=== PATIENT | male | born 1965 | race Caucasian/White ===

== ENCOUNTER 2017-02-12 19:00 | Inpatient (IN) | payer OTHER ==
[2017-02-12] MEDS ORDERED: HYDROmorphone 1 MG/ML 1 ML SYRINGE IVP STA (19:45)
[2017-02-12] MEDS ORDERED: SODIUM CHLORIDE 0.9% 1,000 ML IV STA (19:45)
[2017-02-12] MEDS ORDERED: ONDANSETRON 4 MG/2 ML VIAL IVP STA (19:45)
[2017-02-12] MEDS ORDERED: PANTOPRAZOLE 40 MG/10 ML VIAL IVP STA (19:45)
--- NOTE | 2017-02-12 19:49 | ED ---
Psych HPI - General Chief Complaint: Psychiatric Symptoms Stated Complaint: feet swelling/abdominal pain/depression Time Seen by Provider: 02/12/17 19:30 Source: patient, family, RN notes reviewed Mode of arrival: wheelchair - History of Present Illness Initial Comments: This is a 52-year-old male with a history of alcoholism and alcoholic liver disease who is here because of feeling depressed and suicidal but also he's had a distended abdomen abdominal pain to drinking up to a case of beer per day couple days ago he started having blood in his emesis. He also black stools it was tarry looking. This is since resolved. He has any history of alcoholic she ably the past. He is seeking help for stopping. He does admit to smoking cigarettes also. He denies any fevers chills or sweats he does have some lightheadedness. MD Complaint: suicidal ideation, feels depressed, other - Related Data Home Medications Medication Instructions Recorded Confirmed oxyCODONE HCL/ACETAMINOPHEN 1 tab PO QID PRN 04/20/16 02/12/17 [Percocet 10-325 mg] Allergies Allergy/AdvReac Type Severity Reaction Status Date / Time No Known Allergies Allergy Verified 02/12/17 19:59 Review of Systems ROS Statement: Those systems with pertinent positive or pertinent negative responses have been documented in the HPI. ROS Other: All systems not noted in ROS Statement are negative. Past Medical History Past Medical History: GERD/Reflux, GI Bleed, Seizure Disorder Additional Past Medical History / Comment(s): Chronic alcoholism - SZ related to withdrawals, chronic hip and lower back pain from an accident. History of Any Multi-Drug Resistant Organisms: None Reported Past Surgical History: Orthopedic Surgery Past Anesthesia/Blood Transfusion Reactions: No Reported Reaction Past Psychological History: Anxiety, Bipolar, Depression Smoking Status: Current every day smoker Past Alcohol Use History: Daily, Heavy Past Drug Use History: None Reported - Past Family History Father Additional Family Medical History / Comment(s): cirosis of the liver General Exam - General Exam Comments Initial Comments: This is a well-developed well-nourished awake alert oriented 3 male Limitations: no limitations General appearance: alert, in no apparent distress Head exam: Present: atraumatic, normocephalic, normal inspection Eye exam: Present: normal appearance, PERRL, EOMI. Absent: scleral icterus, conjunctival injection, periorbital swelling ENT exam: Present: normal exam, mucous membranes moist Neck exam: Present: normal inspection. Absent: tenderness, meningismus, lymphadenopathy Respiratory exam: Present: decreased breath sounds. Absent: respiratory distress, wheezes, rales, rhonchi, stridor Cardiovascular Exam: Present: normal rhythm, tachycardia, normal heart sounds. Absent: systolic murmur, diastolic murmur, rubs, gallop, clicks GI/Abdominal exam: Present: soft, distended, tenderness, normal bowel sounds, organomegaly. Absent: guarding, rebound, rigid Rectal exam: Present: normal inspection, normal rectal tone, other (No gross blood. Hemoccult pending) Extremities exam: Present: normal inspection, full ROM, normal capillary refill , pedal edema. Absent: tenderness, joint swelling, calf tenderness Back exam: Present: normal inspection Neurological exam: Present: alert, oriented X3, CN II-XII intact Psychiatric exam: Present: depressed, flat affect, suicidal ideation Skin exam: Present: warm, dry, intact, normal color. Absent: rash Course Vital Signs 02/12/17 02/12/17 19:06 20:32 Temperature 99.0 F Pulse Rate 103 H 107 H Respiratory 18 18 Rate Blood Pressure 177/89 116/72 O2 Sat by Pulse 100 98 Oximetry Medical Decision Making - Medical Decision Making I did discuss the findings with the patient he has not had any further emesis patient will be admitted however for medical evaluation. After he is medically cleared psychiatric evaluation the patient is also at risk for withdrawal. - Lab Data Result diagrams: 02/12/17 20:10 02/12/17 20:10 Lab Results 02/12/17 02/12/17 02/12/17 Range/Units 20:10 20:10 20:10 WBC 9.1 (3.8-10.6) k/uL RBC 2.29 L (4.30-5.90) m/uL Hgb 7.6 L (13.0-17.5) gm/dL Hct 24.3 L (39.0-53.0) % MCV 106.1 H (80.0-100.0) fL MCH 33.1 (25.0-35.0) pg MCHC 31.2 (31.0-37.0) g/dL RDW 14.6 (11.5-15.5) % Plt Count 623 H (150-450) k/uL PT (9.0-12.0) sec INR (<1.1) APTT (22.0-30.0) sec Sodium 132 L (137-145) mmol/L Potassium 3.9 (3.5-5.1) mmol/L Chloride 93 L (98-107) mmol/L Carbon Dioxide 24 (22-30) mmol/L Anion Gap 15 mmol/L BUN 3 L (9-20) mg/dL Creatinine 0.49 L (0.66-1.25) mg/dL Est GFR (MDRD) Af Amer >60 (>60 ml/min/1.73 sqM) Est GFR (MDRD) Non-Af >60 (>60 ml/min/1.73 sqM) Glucose 107 H (74-99) mg/dL Calcium 9.0 (8.4-10.2) mg/dL Total Bilirubin 0.5 (0.2-1.3) mg/dL AST 25 (17-59) U/L ALT 28 (21-72) U/L Alkaline Phosphatase 120 (38-126) U/L Total Creatine Kinase 68 (55-170) U/L CK-MB (CK-2) 1.7 (0.0-2.4) ng/mL CK-MB (CK-2) Rel Index 2.5 Troponin I <0.012 (0.000-0.034) ng/mL Total Protein 7.4 (6.3-8.2) g/dL Albumin 3.8 (3.5-5.0) g/dL Amylase 54 (30-110) U/L Lipase 63 (23-300) U/L Serum Alcohol 51 mg/dL 02/12/17 Range/Units 20:10 WBC (3.8-10.6) k/uL RBC (4.30-5.90) m/uL Hgb (13.0-17.5) gm/dL Hct (39.0-53.0) % MCV (80.0-100.0) fL MCH (25.0-35.0) pg MCHC (31.0-37.0) g/dL RDW (11.5-15.5) % Plt Count (150-450) k/uL PT 10.0 (9.0-12.0) sec INR 1.0 (<1.1) APTT 23.7 (22.0-30.0) sec Sodium (137-145) mmol/L Potassium (3.5-5.1) mmol/L Chloride (98-107) mmol/L Carbon Dioxide (22-30) mmol/L Anion Gap mmol/L BUN (9-20) mg/dL Creatinine (0.66-1.25) mg/dL Est GFR (MDRD) Af Amer (>60 ml/min/1.73 sqM) Est GFR (MDRD) Non-Af (>60 ml/min/1.73 sqM) Glucose (74-99) mg/dL Calcium (8.4-10.2) mg/dL Total Bilirubin (0.2-1.3) mg/dL AST (17-59) U/L ALT (21-72) U/L Alkaline Phosphatase (38-126) U/L Total Creatine Kinase (55-170) U/L CK-MB (CK-2) (0.0-2.4) ng/mL CK-MB (CK-2) Rel Index Troponin I (0.000-0.034) ng/mL Total Protein (6.3-8.2) g/dL Albumin (3.5-5.0) g/dL Amylase (30-110) U/L Lipase (23-300) U/L Serum Alcohol mg/dL - EKG Data -: EKG Interpreted by Ma EKG shows normal: sinus rhythm Rate: tachycardia (Sinus tachycardia rate of 109. Interval 120 QRS duration 96 daily since QTC of 354/476 poor R-wave progression no acute ST-T wave changes.) - Radiology Data Radiology results: report reviewed (I did review the x-ray report no definite acute findings), image reviewed Disposition Clinical Impression: Upper GI bleed, Anemia, Depression, Suicidal ideation, Alcoholism, Nicotine addiction Disposition: ADMITTED IP TO THIS [facility] Condition: Serious Referrals: Lamonte Mckoy Jr, [Primary Care Provider] - 1-2 days
[2017-02-12 20:45] LABS: ALT 28 U/L (21-72); AST 25 U/L (17-59); Alcohol 51 mg/dL; Alkaline Phosphatase 120 U/L (38-126); Amylase 54 U/L (30-110); Anion Gap 15 mmol/L; Basophils % (A) 0 %; Blood Urea Nitrogen 3 mg/dL (9-20); CH 33.7; CHCM 31.8; Carbon Dioxide 24 mmol/L (22-30); Chloride 93 mmol/L (98-107); Eosinophils # (A) 0.1 k/uL (0-0.7); Eosinophils % (A) 1 %; Glucose 107 mg/dL (74-99); HCT 24.3 % (39.0-53.0); HDW 4.89; HGB 7.6 gm/dL (13.0-17.5); Hypochromasia Marked; Luc # (Auto) 0.17; Luc % (Auto) 2; Lymphocytes # (A) 1.3 k/uL (1.0-4.8); Lymphocytes % (A) 14 %; MCH 33.1 pg (25.0-35.0); MCHC 31.2 g/dL (31.0-37.0); MCV 106.1 fL (80.0-100.0); Macrocytosis Moderate; Mean Platelet Volume 7.5; Monocytes # (A) 0.5 k/uL (0-1.0); Monocytes % (A) 6 %; Neutrophils % (A) 77 %; Non-African American GFR(MDRD) >60 (>60 ml/min/1.73 sqM); Partial Thromboplastin Time 23.7 sec (22.0-30.0); Poikilocytosis Marked; Potassium 3.9 mmol/L (3.5-5.1); RBC 2.29 m/uL (4.30-5.90); RDW 14.6 % (11.5-15.5); Sodium 132 mmol/L (137-145); Total Bilirubin 0.5 mg/dL (0.2-1.3); Total Protein 7.4 g/dL (6.3-8.2); WBC 9.1 k/uL (3.8-10.6); WBC (Perox) 9.41
[2017-02-12] MEDS ORDERED: NICOTINE 21MG/24HR PATCH TRANSDERM STA (20:49)
--- NOTE | 2017-02-12 20:53 | XR ---
EXAMINATION TYPE: XR abdomen 2V DATE OF EXAM: 02/12/2017 8:43 PM COMPARISON: 05/02/2016 HISTORY: Nausea TECHNIQUE: 3 views FINDINGS: There is no sign of intestinal obstruction or pneumoperitoneum. Fecal pattern is normal. There are mu ltiple tiny calcifications over the right upper quadrant that could be gallstones. There is a right h ip nailing. There is plate with screws fixating the left acetabulum. There is a levoscoliosis of the lumbar spine. There is no evidence of a mass. Lung bases are clear. IMPRESSION: Nonacute abdomen. There is clearing of the dilated small bowel loops compared to old exam . There is probably gallstones.
[2017-02-12 20:58] LABS: Creatine Kinase 68 U/L (55-170)
[2017-02-12 21:11] LABS: Creatine Kinase MB 1.7 ng/mL (0.0-2.4); Troponin I <0.012 ng/mL (0.000-0.034)
[2017-02-12] MEDS ORDERED: NALOXONE 0.4 MG/ML 1 ML VIAL IV PRN (21:14)
[2017-02-12] MEDS ORDERED: ONDANSETRON 4 MG/2 ML VIAL IVP PRN (21:14)
[2017-02-12] MEDS ORDERED: THIAMINE 100 MG/ML 2 ML VIAL IM STA (21:18)
[2017-02-12] MEDS ORDERED: LORazepam 2 MG/ML SYRINGE IV PRN ×3 (21:18)
[2017-02-12 21:53] LABS: Manual Review Performed
[2017-02-12 21:54] LABS: Polychromasia Present
[2017-02-12] MEDS: THIAMINE 100 MG TAB PO SCH (22:05)
[2017-02-12 22:28] VITALS: BMI 25.0
[2017-02-12] MEDS: SODIUM CHLORIDE 0.9% 1,000 ML IV SCH ×2 (22:30→23:58)
[2017-02-12] MEDS: HYDROmorphone 1 MG/ML 1 ML SYRINGE IV PRN (23:58)
[2017-02-13 00:20] LABS: Appearance,Urine Clear (Clear); Bilirubin,Urine Negative (Negative); Glucose,Urine (UA) Negative (Negative); Ketones,Urine Negative (Negative); Leukocyte Esterase,Urine Negative (Negative); Nitrite,Urine Negative (Negative); Protein,Urine Trace (Negative); Specific Gravity,Urine 1.006 (1.001-1.035); UA Billing (MACRO vs. MICRO) CHEM; Urobilinogen,Urine <2.0 mg/dL (<2.0)
[2017-02-13] MEDS: HYDROmorphone 1 MG/ML 1 ML SYRINGE IV PRN ×2 (07:06→10:00)
[2017-02-13 07:28] LABS: Glucose,Whole Blood 115 mg/dL (75-99)
[2017-02-13 08:41] LABS: Basophils % (A) 0 %; CH 33.5; CHCM 30.8; Eosinophils # (A) 0.1 k/uL (0-0.7); Eosinophils % (A) 1 %; HCT 22.4 % (39.0-53.0); HDW 4.76; Hypochromasia Marked; Luc # (Auto) 0.18; Luc % (Auto) 2; Lymphocytes # (A) 1.3 k/uL (1.0-4.8); Lymphocytes % (A) 15 %; MCH 33.5 pg (25.0-35.0); MCHC 30.7 g/dL (31.0-37.0); MCV 108.9 fL (80.0-100.0); Macrocytosis Marked; Mean Platelet Volume 7.4; Monocytes # (A) 0.6 k/uL (0-1.0); Monocytes % (A) 6 %; Neutrophils # (A) 6.7 k/uL (1.3-7.7); Neutrophils % (A) 76 %; Poikilocytosis Marked; RBC 2.06 m/uL (4.30-5.90); WBC 8.8 k/uL (3.8-10.6); WBC (Perox) 9.26
[2017-02-13 09:02] LABS: HGB 6.9 gm/dL (13.0-17.5)
[2017-02-13] MEDS: PANTOPRAZOLE 40 MG/10 ML VIAL IV SCH ×2 (09:36→20:13)
[2017-02-13] MEDS: NICOTINE 21MG/24HR PATCH TRANSDERM SCH (10:00)
[2017-02-13] MEDS: SODIUM CHLORIDE 0.9% 1,000 ML IV SCH ×2 (10:01→10:09)
[2017-02-13] MEDS: THIAMINE 100 MG TAB PO SCH ×2 (10:08→13:35)
[2017-02-13 10:27] LABS: Manual Review Performed
--- NOTE | 2017-02-13 13:50 | P.CN ---
Psychiatric Consult - . Consult date: 02/13/17 Consult:: 02/13/17 13:40 DATE OF SERVICE: 02/13/2017 IDENTIFYING DATA: This patient is a 52-year-old male admitted to the medical floor for alcohol intoxication, suicidal ideation. . HISTORY OF PRESENT ILLNESS: The patient present presented to the emergency room with his for depression and suicidal ideation and alcohol use disorder. He was admitted to the medical floor due to several medical illnesses requiring treatment. It was noted that he was severely anemic with a hemoglobin of 6.9. When patient was being interviewed he was just receiving blood transfusion. At that time his also arrived. Patient stated it was all right for his to remain for the evaluation. Patient states he is not suicidal she would not do that to his and children. States he is never made a suicide attempt, states he has been here on 3 W but no visit was found. Patient states that he drinks anywhere from 12- 24 beers every day. He has not worked for 12 years. He is not on Social Security disability has been denied. states that they were denied because she was working and receiving a good salary. Now she has been laid off and working minimum wage. Patient denies depression and denies suicidal ideation, however says that he is frequently talking about regaining the garage so that when someone opens up the door he'll be there hanging. Patient becomes upset stating that that is just a joke. thinks that he is depressed but she is not sure he is irritable during the interview and marginally cooperative. PAST PSYCHIATRIC HISTORY: []Reports he had an admission here but I could not find the visit. States that he was having hallucinations at the time denies that he was using anything other than alcohol PAST MEDICAL HISTORY: History of alcoholism and alcoholic liver disease, abdominal pain, blood in his emesis. He also black stools it was tarry looking. This is since resolved. Laboratory Tests 02/13/17 08:12 WBC 8.8 RBC 2.06 L Hgb 6.9 L* Hct 22.4 L MCV 108.9 H MCH 33.5 MCHC 30.7 L RDW 15.0 Plt Count 538 H CHEMICAL DEPENDENCY HISTORY: Patient reports that he used to use cannabis when he was younger but hasn't used for quite some time currently is only drug use is alcohol. He reports he's had 2 rehabs could not recall the dates both at [place] reports that he remained abstinent for maybe 2-3 weeks after each one and then something would trigger him to go back to drinking. States he has 3 DUIs the last one about 6 or 7 years ago FAMILY PSYCHIATRIC HISTORY: Unknown FAMILY CHEMICAL DEPENDENCY HISTORY: Unknown LEGAL HISTORY: 3 DUIs no pending issues SOCIAL HISTORY: Patient lives with his they have grown children. They've been for 31 years is frustrated with his behavior and lack of willingness to make any changes they are now financially strapped due to the fact that she lost her well paying job. Patient has attempted to receive Social Security disability but has been denied MENTAL STATUS EXAM: Patient alert and oriented 3, good eye contact, fair groomed in hospital attire/street clothing. Speech normal volume, rate and production. Coherent, logical and goal directed thought process. No WILLY, no FOI. No TB/TW/ TI Denied auditory and visual hallucinations. Denied paranoid ideation, delusions or IOR. Memory grossly intact Cognition average Mood dysphoric, irritable, affect and constricted, congruent with mood. Denies suicidal ideation, denies homicidal ideation. Insight limited; Judgment grossly intact for treatment purposes IMPRESSIONS: Suicidal ideation ETOH Use Disorder, severe (ETOH Dependence) ETOH Induced mood disorder vs Depression, unspecified Anemia PLAN: Patient agreed to 3W admission once medically cleared. Discussed with who is in support. 02/13/17 13:51 02/13/17 13:52
--- NOTE | 2017-02-13 14:10 | P.HPIM ---
History of Present Illness H&P Date: 02/13/17 Chief Complaint: GI bleed anemia, depression, suicidal ideation, alcoholism, nicotine addict This 48-year-old male known to the practice , with history of alcoholic liver disease, alcoholism, patient presented with feelings of depression and suicidal thoughts. Patient drinks up to case of beer per day started having bloody emesis 2-3 days ago. Also complained of black tarry stools. Heavy cigarette smoker. Denies fevers chills or sweats is complaining of lightheadedness Review of Systems Constitutional: Reports sweats, Reports weakness Ears, nose, mouth and throat: Reports as per HPI Cardiovascular: Reports as per HPI Respiratory: Reports cough Gastrointestinal: Reports bloating, Reports coffee ground emesis, Reports hematochezia Genitourinary: Reports as per HPI Musculoskeletal: Reports as per HPI Integumentary: Reports as per HPI Neurological: Reports as per HPI Psychiatric: Reports depression, Reports suicidal ideation Endocrine: Reports as per HPI Past Medical History Past Medical History: GERD/Reflux, GI Bleed, Seizure Disorder Additional Past Medical History / Comment(s): chronic hip and upper back pain. History of Any Multi-Drug Resistant Organisms: None Reported Past Surgical History: Back Surgery, Orthopedic Surgery Additional Past Surgical History / Comment(s): left hip Past Anesthesia/Blood Transfusion Reactions: No Reported Reaction Past Psychological History: Anxiety, Bipolar, Depression Smoking Status: Current every day smoker Past Alcohol Use History: Daily, Heavy Additional Past Alcohol Use History / Comment(s): 12-24 beers a day Past Drug Use History: None Reported - Past Family History Father Additional Family Medical History / Comment(s): cirrosis of the liver Medications and Allergies Home Medications Medication Instructions Recorded Confirmed Type oxyCODONE HCL/ACETAMINOPHEN 1 tab PO QID PRN 04/20/16 02/12/17 History [Percocet 10-325 mg] Allergies Allergy/AdvReac Type Severity Reaction Status Date / Time No Known Allergies Allergy Verified 02/12/17 19:59 Physical Exam Osteopathic Statement: *. No significant issues noted on an osteopathic structural exam other than those noted in the History and Physical/Consult. Vitals: Vital Signs Temp Pulse Pulse Resp BP BP Pulse Ox 02/13/17 13:37 98.9 F 99 16 140/83 97 02/13/17 13:07 99.3 F 98 16 144/94 97 02/13/17 12:57 99.2 F 101 H 16 136/81 98 02/13/17 07:00 99.4 F 112 H 14 137/73 96 02/13/17 04:01 16 02/13/17 02:36 99.2 F 99 16 112/74 97 02/12/17 22:04 98.3 F 100 18 160/90 99 02/12/17 22:00 18 02/12/17 21:23 99.6 F 108 H 18 139/77 100 02/12/17 20:32 107 H 18 116/72 98 02/12/17 19:06 99.0 F 103 H 18 177/89 100 Intake and Output 02/12/17 02/13/17 02/13/17 22:59 06:59 14:59 Intake Total 800 0 Output Total 600 Balance 800 -600 Intake: IV 800 Sodium Chloride 0.9% 1, 800 000 ml @ 100 mls/hr IV . Q10H SARBJIT Rx#:[id number] Blood Product 0 Rc As-3 Unit 0 [id number] Output: Urine 600 Other: Voiding Method Urinal # Voids 2 Weight 74.843 kg General: [Patient awake, alert and oriented times 3. Patient in no acute distress.] HEENT: [PERRL. EOMI. No pharyngeal erythema or exudate.] No scleral icterus Neck: [No adenopathy.] Cardiac: [Heart regular in rate and rhythm. No S3. No S4. No clicks, rubs. No murmur.] Lungs: [Clear to auscultation bilaterally.] Abdomen: [No mass. No organomegaly. Bowel sounds presnt and normoactive in all 4 quadrants.] Extremes: [No edema no cyanosis no claudication normal pulses] : [] Musculoskeletal: [No joint erythema, edema or tenderness.] Skin: [No rash.] Neurologic: [No lateralizing deficits. CN II - XII grossly intact.] Lymphatic: [No adenopathy.] Results CBC & Chem 7: 02/13/17 08:12 02/12/17 20:10 Labs: Abnormal Lab Results - Last 24 Hours (Table) 02/12/17 02/12/17 02/12/17 Range/Units 20:10 20:10 20:10 RBC 2.29 L (4.30-5.90) m/uL Hgb 7.6 L (13.0-17.5) gm/dL Hct 24.3 L (39.0-53.0) % MCV 106.1 H (80.0-100.0) fL MCHC (31.0-37.0) g/dL Plt Count 623 H (150-450) k/uL Sodium 132 L (137-145) mmol/L Chloride 93 L (98-107) mmol/L BUN 3 L (9-20) mg/dL Creatinine 0.49 L (0.66-1.25) mg/dL Glucose 107 H (74-99) mg/dL POC Glucose (mg/dL) (75-99) mg/dL Urine Protein (Negative) Urine Opiates Screen (NotDetected) Ur Oxycodone Screen (NotDetected) Crossmatch See Detail 02/13/17 02/13/17 02/13/17 Range/Units 00:06 00:06 07:26 RBC (4.30-5.90) m/uL Hgb (13.0-17.5) gm/dL Hct (39.0-53.0) % MCV (80.0-100.0) fL MCHC (31.0-37.0) g/dL Plt Count (150-450) k/uL Sodium (137-145) mmol/L Chloride (98-107) mmol/L BUN (9-20) mg/dL Creatinine (0.66-1.25) mg/dL Glucose (74-99) mg/dL POC Glucose (mg/dL) 115 H (75-99) mg/dL Urine Protein Trace H (Negative) Urine Opiates Screen Detected H (NotDetected) Ur Oxycodone Screen Detected H (NotDetected) Crossmatch 02/13/17 Range/Units 08:12 RBC 2.06 L (4.30-5.90) m/uL Hgb 6.9 L* (13.0-17.5) gm/dL Hct 22.4 L (39.0-53.0) % MCV 108.9 H (80.0-100.0) fL MCHC 30.7 L (31.0-37.0) g/dL Plt Count 538 H (150-450) k/uL Sodium (137-145) mmol/L Chloride (98-107) mmol/L BUN (9-20) mg/dL Creatinine (0.66-1.25) mg/dL Glucose (74-99) mg/dL POC Glucose (mg/dL) (75-99) mg/dL Urine Protein (Negative) Urine Opiates Screen (NotDetected) Ur Oxycodone Screen (NotDetected) Crossmatch Thrombosis Risk Factor Assmnt - DVT/VTE Prophylaxis DVT/VTE Prophylaxis: Low risk, early ambulation encouraged - Choose All That Apply Each Factor Represents 1 point: Age 41-60 years, Obesity (BMI >25), Swollen legs (current) Other Risk Factors: No Other congenital or acquired thrombophilia - If yes, enter type in comment: Yes Each Risk Factor Represents 5 Points: Major surgery lasting over 3 hours Thrombosis Risk Factor Assessment Total Risk Factor Score: 8 Thrombosis Risk Factor Assessment Level: High Risk Assessment and Plan Plan: Alcoholism by history GI bleed Anemia secondary to GI bleed Nicotine addiction Depression, suicidal ideation Plan: Transfuse 2 units packed red cells GI consult Psychiatry consult Further orders to follow Time with Patient: Greater than 30
[2017-02-13 16:19] LABS: Anisocytosis Slight; Basophils % (A) 0 %; CH 32.7; CHCM 31.2; Eosinophils # (A) 0.1 k/uL (0-0.7); Eosinophils % (A) 1 %; HCT 25.5 % (39.0-53.0); HDW 4.96; HGB 7.6 gm/dL (13.0-17.5); Hypochromasia Marked; Luc # (Auto) 0.18; Luc % (Auto) 2; Lymphocytes # (A) 1.3 k/uL (1.0-4.8); Lymphocytes % (A) 15 %; MCH 31.6 pg (25.0-35.0); MCHC 29.8 g/dL (31.0-37.0); MCV 105.8 fL (80.0-100.0); Macrocytosis Marked; Mean Platelet Volume 7.4; Monocytes # (A) 0.6 k/uL (0-1.0); Monocytes % (A) 7 %; Neutrophils # (A) 6.2 k/uL (1.3-7.7); Neutrophils % (A) 74 %; Poikilocytosis Marked; RBC 2.41 m/uL (4.30-5.90); RDW 18.8 % (11.5-15.5); WBC 8.3 k/uL (3.8-10.6); WBC (Perox) 9.22
[2017-02-13 21:03] LABS: Anisocytosis Slight; Basophils % (A) 0 %; CH 32.6; CHCM 33.4; Eosinophils # (A) 0.1 k/uL (0-0.7); Eosinophils % (A) 1 %; HCT 27.8 % (39.0-53.0); HDW 5.35; Hypochromasia Marked; Luc # (Auto) 0.22; Luc % (Auto) 3; Lymphocytes # (A) 1.5 k/uL (1.0-4.8); Lymphocytes % (A) 17 %; MCH 32.7 pg (25.0-35.0); Macrocytosis Slight; Mean Platelet Volume 7.1; Monocytes # (A) 0.7 k/uL (0-1.0); Monocytes % (A) 8 %; Neutrophils # (A) 6.3 k/uL (1.3-7.7); Neutrophils % (A) 72 %; Poikilocytosis Marked; RBC 2.81 m/uL (4.30-5.90); WBC 8.7 k/uL (3.8-10.6); WBC (Perox) 9.28
[2017-02-13 21:04] LABS: HGB 9.2 gm/dL (13.0-17.5)
[2017-02-14] MEDS: HYDROmorphone 1 MG/ML 1 ML SYRINGE IV PRN ×6 (02:45→21:47)
[2017-02-14] MEDS: PANTOPRAZOLE 40 MG/10 ML VIAL IV SCH ×2 (07:25→21:47)
[2017-02-14] MEDS: NICOTINE 21MG/24HR PATCH TRANSDERM SCH (07:25)
[2017-02-14 07:27] LABS: Anisocytosis Slight; Basophils % (A) 1 %; CH 32.2; Eosinophils # (A) 0.1 k/uL (0-0.7); Eosinophils % (A) 1 %; HDW 5.08; HGB 9.5 gm/dL (13.0-17.5); Hypochromasia Marked; Luc # (Auto) 0.15; Luc % (Auto) 2; Lymphocytes # (A) 1.4 k/uL (1.0-4.8); Lymphocytes % (A) 16 %; MCH 32.4 pg (25.0-35.0); MCHC 31.8 g/dL (31.0-37.0); Macrocytosis Moderate; Mean Platelet Volume 8.2; Monocytes # (A) 0.7 k/uL (0-1.0); Monocytes % (A) 8 %; Neutrophils # (A) 6.2 k/uL (1.3-7.7); Neutrophils % (A) 73 %; Poikilocytosis Marked; RBC 2.95 m/uL (4.30-5.90); RDW 19.2 % (11.5-15.5); WBC 8.5 k/uL (3.8-10.6); WBC (Perox) 9.11
[2017-02-14 07:35] LABS: Glucose,Whole Blood 92 mg/dL (75-99)
[2017-02-14] MEDS: THIAMINE 100 MG TAB PO SCH ×2 (10:59→17:44)
[2017-02-14 11:38] LABS: Glucose,Whole Blood 102 mg/dL (75-99)
--- NOTE | 2017-02-14 15:16 | P.PN ---
Subjective Principal diagnosis: GI bleed, anemia and depression suicidal ideation alcoholism and nicotine addiction 48-year-old male well-known to the practice history of alcoholic liver disease and alcoholism recent episodic anemia with probable upper GI bleed also 3 days ago had some black tarry stools heavy cigarette smoker, denies fever denies chills or sweats denies complaining of lightheadedness. Patient has been typed and crossed and transfused with 2 units packed cells hemoglobin is currently 9.5 gm Objective - Vital Signs Vital signs: Vital Signs Temp 98.3 F 02/14/17 14:51 Pulse 86 02/14/17 14:51 Resp 18 02/14/17 14:51 BP 182/92 02/14/17 14:51 Pulse Ox 97 02/14/17 14:51 Intake & Output 02/13/17 02/14/17 02/14/17 18:59 06:59 18:59 Intake Total 750 1310 500 Output Total 600 Balance 150 1310 500 Weight 74.843 kg Intake: IV 750 200 500 Sodium Chloride 0.9% 1, 750 200 500 000 ml @ 100 mls/hr IV . Q10H SARBJIT Rx#:[id number] Intake, IV Titration 800 Amount Sodium Chloride 0.9% 1, 800 000 ml @ 100 mls/hr IV . Q10H SARBJIT Rx#:[id number] Oral 0 0 Blood Product 0 310 Rc As-3 Unit 0 [id number] Rc As-3 Unit 0 310 [id number] Output: Urine 600 Other: Voiding Method Urinal Urinal # Voids 4 - Exam General: [Patient awake, alert and oriented times 3. Patient in no acute distress.] HEENT: [PERRL. EOMI. No pharyngeal erythema or exudate.] Neck: [No adenopathy.] Cardiac: [Heart regular in rate and rhythm. No S3. No S4. No clicks, rubs. No murmur.] Lungs: [Clear to auscultation bilaterally.] Abdomen: [No mass. No organomegaly. Bowel sounds presnt and normoactive in all 4 quadrants.] Extremes: [No edema no cyanosis no claudication normal pulses] : [] Musculoskeletal: [No joint erythema, edema or tenderness.] Skin: [No rash.] Neurologic: [No lateralizing deficits. CN II - XII grossly intact.] Lymphatic: [No adenopathy.] - Labs CBC & Chem 7: 02/14/17 06:34 02/12/17 20:10 Labs: Abnormal Lab Results - Last 24 Hours (Table) 02/12/17 02/13/17 02/13/17 Range/Units 20:10 16:06 20:40 RBC 2.41 L 2.81 L (4.30-5.90) m/uL Hgb 7.6 L 9.2 L D (13.0-17.5) gm/dL Hct 25.5 L 27.8 L (39.0-53.0) % MCV 105.8 H (80.0-100.0) fL MCHC 29.8 L (31.0-37.0) g/dL RDW 18.8 H 19.0 H (11.5-15.5) % Plt Count 451 H (150-450) k/uL POC Glucose (mg/dL) (75-99) mg/dL Crossmatch See Detail 02/14/17 02/14/17 Range/Units 06:34 11:36 RBC 2.95 L (4.30-5.90) m/uL Hgb 9.5 L (13.0-17.5) gm/dL Hct 30.0 L (39.0-53.0) % MCV 102.0 H (80.0-100.0) fL MCHC (31.0-37.0) g/dL RDW 19.2 H (11.5-15.5) % Plt Count (150-450) k/uL POC Glucose (mg/dL) 102 H (75-99) mg/dL Crossmatch Assessment and Plan Plan: Alcoholism by history GI bleed Anemia secondary to GI bleed Nicotine addiction Depression, suicidal ideation Plan: Hemoglobin was 6.9 on admission patient was transfused 2 units is currently 9.5 g/dL EGD has been tentatively scheduled for today Psychiatry consult Further orders to follow Time with Patient: Less than 30
[2017-02-14 15:37] LABS: Anisocytosis Slight; Basophils % (A) 0 %; CH 32.2; CHCM 31.3; Eosinophils # (A) 0.1 k/uL (0-0.7); Eosinophils % (A) 1 %; HCT 31.1 % (39.0-53.0); HDW 4.88; HGB 9.4 gm/dL (13.0-17.5); Hypochromasia Marked; Luc # (Auto) 0.26; Luc % (Auto) 3; Lymphocytes # (A) 1.5 k/uL (1.0-4.8); Lymphocytes % (A) 16 %; MCH 31.3 pg (25.0-35.0); MCHC 30.1 g/dL (31.0-37.0); MCV 104.1 fL (80.0-100.0); Macrocytosis Marked; Mean Platelet Volume 7.5; Monocytes # (A) 0.6 k/uL (0-1.0); Monocytes % (A) 7 %; Neutrophils # (A) 6.9 k/uL (1.3-7.7); Neutrophils % (A) 73 %; Poikilocytosis Marked; RBC 2.99 m/uL (4.30-5.90); RDW 18.9 % (11.5-15.5); WBC 9.5 k/uL (3.8-10.6); WBC (Perox) 9.82
[2017-02-14] MEDS ORDERED: PROPOFOL 10 MG/ML 20 ML VIAL IV ONE (16:05)
[2017-02-14] MEDS ORDERED: IV FLUID CONTINUATION 900 ML IV ONE (16:05)
--- NOTE | 2017-02-14 16:36 | P.PCN ---
Date of Procedure: 02/14/17 Preoperative Diagnosis: Postoperative Diagnosis: Procedure(s) Performed: Procedure: Esophagogastroduodenoscopy and biopsy. Preoperative diagnosis: Acute GI bleeding. Postoperative diagnosis: 1. Hiatal hernia and low-grade distal esophagitis. 2. Large antral ulcer with irregular edges not actively bleeding at the time of this exam. 3. Multiple biopsies obtained. Preparation and sedation: Was provided by anesthesia. Brief clinical history: the patient is a 48-year-old male with history of alcoholic liver disease and alcoholism, who presented with feelings of depression and suicidal thoughts. Patient drinks up to case of beer per day. He reported bloody emesis that started 2-3 days ago. Also complained of black tarry stools. Hb dropped to 6.9 requiring transfususions. EGD in 2014 showed antral ulcers. The details are summarized in the history and physical and dictated consultations and progress notes. Procedure: With the patient on his left lateral decubitus position and after informed consent and adequate sedation, advise the Olympus-GIF 160 video upper endoscope through the cricopharyngeus down the esophagus. GE junction was around 36 cm from the incisors and there was a sliding hiatal hernia. The distal esophagus showed short linear erosions consistent with low-grade distal esophagitis but there were no mucosal tears, varices, ulcers or active bleeding. The stomach was then insufflated with air and inspected in detail including the retroflex view in the cardia. There was a large ulcer in the antrum deforming the prepyloric area along the greater curvature and was covered with white exudate. I could not see the full extent of the ulcer in one view but I suspect it is at least 4 cm in greatest dimension if not more. The edges of the ulcer that I could see where irregular. There was no dark spots or clots or active bleeding. The pylorus was identified within a centimeter from the ulcer edge. I passed the endoscope through the pylorus into the duodenum. No obvious abnormalities were seen in the pyloric channel, duodenal bulb, post bulbar area or descending duodenum. There was no active bleeding at the time of this exam. I obtained multiple biopsies from the ulcer edge then the endoscope was withdrawn. The patient tolerated the procedure well. Plan: The patient will be allowed full fluids and will continue to monitor his blood counts closely. Further plans will be made based on his course and biopsy results. He may require repeat endoscopy for additional biopsies. I will discuss with you and will follow with you with interest. Implants: Indications for Procedure: Operative Findings: Description of Procedure:
[2017-02-14 22:59] LABS: Anisocytosis Slight; Basophils % (A) 0 %; CH 32.6; CHCM 31.8; Eosinophils # (A) 0.1 k/uL (0-0.7); Eosinophils % (A) 1 %; HCT 29.2 % (39.0-53.0); Hypochromasia Marked; Luc # (Auto) 0.19; Luc % (Auto) 2; Lymphocytes # (A) 1.5 k/uL (1.0-4.8); Lymphocytes % (A) 17 %; MCHC 30.8 g/dL (31.0-37.0); MCV 103.6 fL (80.0-100.0); Macrocytosis Marked; Mean Platelet Volume 7.4; Monocytes # (A) 0.7 k/uL (0-1.0); Monocytes % (A) 8 %; Neutrophils # (A) 6.3 k/uL (1.3-7.7); Neutrophils % (A) 72 %; Poikilocytosis Marked; RBC 2.82 m/uL (4.30-5.90); RDW 18.9 % (11.5-15.5); WBC 8.8 k/uL (3.8-10.6); WBC (Perox) 9.23
[2017-02-15] MEDS: HYDROmorphone 1 MG/ML 1 ML SYRINGE IV PRN ×5 (01:59→17:32)
[2017-02-15 03:56] LABS: Anisocytosis Slight; Basophils % (A) 0 %; CH 32.6; CHCM 32.7; Eosinophils # (A) 0.1 k/uL (0-0.7); Eosinophils % (A) 1 %; HCT 29.4 % (39.0-53.0); HDW 4.97; HGB 9.5 gm/dL (13.0-17.5); Hypochromasia Marked; Luc # (Auto) 0.26; Luc % (Auto) 3; Lymphocytes # (A) 1.4 k/uL (1.0-4.8); Lymphocytes % (A) 15 %; MCH 32.5 pg (25.0-35.0); MCHC 32.3 g/dL (31.0-37.0); MCV 100.7 fL (80.0-100.0); Macrocytosis Moderate; Mean Platelet Volume 8.2; Monocytes # (A) 0.6 k/uL (0-1.0); Monocytes % (A) 7 %; Neutrophils # (A) 6.4 k/uL (1.3-7.7); Neutrophils % (A) 73 %; Poikilocytosis Marked; RBC 2.92 m/uL (4.30-5.90); RDW 18.5 % (11.5-15.5); WBC 8.8 k/uL (3.8-10.6); WBC (Perox) 8.95
[2017-02-15] MEDS: SODIUM CHLORIDE 0.9% 1,000 ML IV SCH ×4 (04:50→07:31)
[2017-02-15 07:19] LABS: Anisocytosis Slight; Basophils % (A) 0 %; CH 32.4; CHCM 31.8; Eosinophils # (A) 0.1 k/uL (0-0.7); Eosinophils % (A) 1 %; HDW 4.74; HGB 9.7 gm/dL (13.0-17.5); Hypochromasia Marked; Luc # (Auto) 0.19; Luc % (Auto) 2; Lymphocytes # (A) 1.2 k/uL (1.0-4.8); Lymphocytes % (A) 14 %; MCH 32.1 pg (25.0-35.0); MCHC 31.2 g/dL (31.0-37.0); MCV 102.9 fL (80.0-100.0); Macrocytosis Moderate; Mean Platelet Volume 7.7; Monocytes # (A) 0.6 k/uL (0-1.0); Monocytes % (A) 7 %; Neutrophils # (A) 6.3 k/uL (1.3-7.7); Neutrophils % (A) 75 %; Poikilocytosis Marked; RBC 3.01 m/uL (4.30-5.90); RDW 18.7 % (11.5-15.5); WBC 8.3 k/uL (3.8-10.6); WBC (Perox) 8.03
[2017-02-15] MEDS: NICOTINE 21MG/24HR PATCH TRANSDERM SCH (07:28)
[2017-02-15] MEDS: THIAMINE 100 MG TAB PO SCH ×2 (07:28→15:27)
[2017-02-15] MEDS: PANTOPRAZOLE 40 MG/10 ML VIAL IV SCH (07:28)
--- NOTE | 2017-02-15 09:52 | CDI ---
In responding to this query, please exercise your independent professional judgment. The [facility] Coding Staff and Clinical Documentation Specialists appreciate your assistance in clarifying documentation, maintaining compliance with coding guidelines, accurately documenting patients condition and capturing severity of illness. The fact that a question is asked does not imply that any particular answer is desired or expected. Communication forms are a method of clarifying documentation and are not made part of the Legal Health Record. Thank you in advance for your clarification. Last Revision, July 2015 Eddi Villalobos [address] [place] [address] Documentation Clarification Form Date: 02/15/2017 9:37:00 AM From: Radha Sheridan RN, CCDS Admit Date: 02/12/2017 9:15:00 PM Patient Name: Pablo Saavedra Visit Number: [id number] Dr. Lamonte Mckoy A diagnosis of anemia lacks specificity to accurately reflect your patients severity of condition and clarification is needed. Patient history/risk factors: 02/14 Procedure Note: "EGD in 2014 showed antral ulcers." 02/13 H&P: history of alcoholic liver disease, alcoholism Clinical Indicators: 02/14 Attending Progress Notes: "Anemia secondary to GI bleed." 02/14 EGD: "Large antral ulcer with irregular edges not actively bleeding at the time of this exam." Hemoglobin: 7.6/9.2/9/9.7 Hematocrit: 24.3/27.8/29.2/31 Treatment: 2 units of PRBC's transfused 0.9% NS @ 100cc/hr In order to capture the severity of condition, please clarify the type of anemia and etiology if known: Acute blood loss anemia Acute on chronic blood loss anemia Chronic blood loss anemia Iron deficiency anemia Hemolytic anemia Drug induced anemia Anemia due to malignancy Nutritional anemia Anemia of chronic kidney disease Unable to determine Other, please specify Please document in your progress notes and discharge summary in order to capture severity of illness and risk of mortality. Include clinical findings that support your diagnosis. FYI: Press F11 to launch patient chart. Place X here if this finding has no clinical significance, is not applicable or if you are not able to provide any additional documentation. MTDD
--- NOTE | 2017-02-15 10:13 | P.PN ---
Subjective Principal diagnosis: GI bleeding 52-year-old male with a history of alcohol liver disease and EtOH abuse present with acute GI bleed and suicidal thoughts. Status post EGD yesterday with findings of a large antral ulcer proximal to 4 cm with the regular edges not actively bleeding at time of exam. Biopsies pending. This morning he feels well. Minimal abdominal discomfort. No emesis. Tolerating light diet. Hemoglobin 9.7. Objective - Vital Signs Vital signs: Vital Signs Temp 97.1 F L 02/15/17 07:00 Pulse 80 02/15/17 08:00 Resp 16 02/15/17 08:00 BP 146/85 02/15/17 07:00 Pulse Ox 97 02/15/17 07:00 Intake & Output 02/14/17 02/15/17 02/15/17 18:59 06:59 18:59 Intake Total 1400 Output Total 700 Balance 1400 -700 Weight 74.843 kg 74.843 kg Intake: IV 600 Sodium Chloride 0.9% 1, 500 000 ml @ 100 mls/hr IV . Q10H [facility] Rx#:[id number] Oral 800 Output: Urine 700 Other: Voiding Method Urinal Urinal - Exam General appearance: The patient is alert, oriented, in no acute distress. HET: Head is normocephalic and atraumatic. Pupils are equal and reactive. Oropharynx is clear without lesions. Neck: Supple without lymphadenopathy. Trachea midline. Heart: S1 S2. Regular rate and rhythm. Lungs: No crackles or wheezes are heard. Abdomen: Soft, mild midepigastric tenderness, nondistended with bowel sounds. No peritoneal signs. No palpable organomegaly or masses. Extremities: Normal skin color and turgor. No cyanosis, rash, ulceration, clubbing, or edema. Radial and pedal pulses are 2/4 bilaterally. Neurological: No focal deficits. Strength and sensation are grossly intact. - Labs CBC & Chem 7: 02/15/17 06:54 02/12/17 20:10 Labs: Abnormal Lab Results - Last 24 Hours (Table) 02/14/17 02/14/17 02/14/17 Range/Units 11:36 15:07 21:44 RBC 2.99 L 2.82 L (4.30-5.90) m/uL Hgb 9.4 L 9.0 L (13.0-17.5) gm/dL Hct 31.1 L 29.2 L (39.0-53.0) % MCV 104.1 H 103.6 H (80.0-100.0) fL MCHC 30.1 L 30.8 L (31.0-37.0) g/dL RDW 18.9 H 18.9 H (11.5-15.5) % POC Glucose (mg/dL) 102 H (75-99) mg/dL 02/15/17 02/15/17 Range/Units 03:42 06:54 RBC 2.92 L 3.01 L (4.30-5.90) m/uL Hgb 9.5 L 9.7 L (13.0-17.5) gm/dL Hct 29.4 L 31.0 L (39.0-53.0) % MCV 100.7 H 102.9 H (80.0-100.0) fL MCHC (31.0-37.0) g/dL RDW 18.5 H 18.7 H (11.5-15.5) % POC Glucose (mg/dL) (75-99) mg/dL Assessment and Plan (1) Upper GI bleed Status: Acute (2) Antral ulcer Status: Acute (3) H/O ETOH abuse Status: Acute (4) Acute blood loss anemia Status: Acute (5) Suicidal ideation Status: Acute Plan: 1. Continue with IV Protonix and on discharge 40 mg daily. 2. Alcohol abstinence. 3. Avoid NSAIDs and aspirin. 4. Discharge per medicine. 5. Light diet as tolerated. 6. Follow up in GI office in 7-10 days for reevaluation and discussion of outpatient recent surveillance EGD in the next 6-8 weeks. Assessment and plan of care discussed with Dr. Michelle.
[2017-02-15 14:58] VITALS: BP 143/86; PULSE 95; RESP 18; TEMP 97.6
[2017-02-15 15:42] LABS: Anisocytosis Slight; Basophils % (A) 0 %; CH 32.4; CHCM 31.9; Eosinophils # (A) 0.1 k/uL (0-0.7); Eosinophils % (A) 1 %; HCT 31.1 % (39.0-53.0); HDW 4.74; HGB 9.9 gm/dL (13.0-17.5); Hypochromasia Marked; Luc # (Auto) 0.27; Luc % (Auto) 3; Lymphocytes # (A) 1.3 k/uL (1.0-4.8); Lymphocytes % (A) 13 %; MCH 32.6 pg (25.0-35.0); MCHC 31.7 g/dL (31.0-37.0); MCV 102.8 fL (80.0-100.0); Macrocytosis Moderate; Mean Platelet Volume 7.5; Monocytes # (A) 0.8 k/uL (0-1.0); Monocytes % (A) 8 %; Neutrophils # (A) 7.7 k/uL (1.3-7.7); Neutrophils % (A) 75 %; Poikilocytosis Marked; RBC 3.03 m/uL (4.30-5.90); RDW 18.3 % (11.5-15.5); WBC 10.2 k/uL (3.8-10.6); WBC (Perox) 10.28
--- NOTE | 2017-02-15 19:02 | P.PN ---
Subjective Principal diagnosis: GI bleed, anemia and depression suicidal ideation alcoholism and nicotine addiction 48-year-old male well-known to the practice history of alcoholic liver disease and alcoholism recent episodic anemia with probable upper GI bleed also 3 days ago had some black tarry stools heavy cigarette smoker, denies fever denies chills or sweats denies complaining of lightheadedness. Patient has been typed and crossed and transfused with 2 units packed cells hemoglobin is currently 9.5 gm. PT is currently status post ETT with approximately 4 cm ulcer on or around the gastric antrum, EtOH abuse acute blood loss anemia currently stable Objective - Vital Signs Vital signs: Vital Signs Temp 97.6 F 02/15/17 14:00 Pulse 95 02/15/17 16:00 Resp 18 02/15/17 16:00 BP 143/86 02/15/17 14:00 Pulse Ox 100 02/15/17 14:00 Intake & Output 02/14/17 02/15/17 02/15/17 18:59 06:59 18:59 Intake Total 1400 Output Total 700 Balance 1400 -700 Weight 74.843 kg 74.843 kg Intake: IV 600 Sodium Chloride 0.9% 1, 500 000 ml @ 100 mls/hr IV . Q10H [id number] Rx#:[id number] Oral 800 Output: Urine 700 Other: Voiding Method Urinal Urinal # Voids 3 - Exam General: [Patient awake, alert and oriented times 3. Patient in no acute distress.] HEENT: [PERRL. EOMI. No pharyngeal erythema or exudate.] Neck: [No adenopathy.] Cardiac: [Heart regular in rate and rhythm. No S3. No S4. No clicks, rubs. No murmur.] Lungs: [Clear to auscultation bilaterally.] Abdomen: [No mass. No organomegaly. Bowel sounds presnt and normoactive in all 4 quadrants.] Extremes: [No edema no cyanosis no claudication normal pulses] : [] Musculoskeletal: [No joint erythema, edema or tenderness.] Skin: [No rash.] Neurologic: [No lateralizing deficits. CN II - XII grossly intact.] Lymphatic: [No adenopathy.] - Labs CBC & Chem 7: 02/15/17 15:13 02/12/17 20:10 Labs: Abnormal Lab Results - Last 24 Hours (Table) 02/14/17 02/15/17 02/15/17 Range/Units 21:44 03:42 06:54 RBC 2.82 L 2.92 L 3.01 L (4.30-5.90) m/uL Hgb 9.0 L 9.5 L 9.7 L (13.0-17.5) gm/dL Hct 29.2 L 29.4 L 31.0 L (39.0-53.0) % MCV 103.6 H 100.7 H 102.9 H (80.0-100.0) fL MCHC 30.8 L (31.0-37.0) g/dL RDW 18.9 H 18.5 H 18.7 H (11.5-15.5) % 02/15/17 Range/Units 15:13 RBC 3.03 L (4.30-5.90) m/uL Hgb 9.9 L (13.0-17.5) gm/dL Hct 31.1 L (39.0-53.0) % MCV 102.8 H (80.0-100.0) fL MCHC (31.0-37.0) g/dL RDW 18.3 H (11.5-15.5) % Assessment and Plan Plan: Alcoholism by history GI bleed Anemia secondary to GI bleed Nicotine addiction Depression, suicidal ideation Plan: Hemoglobin was 6.9 on admission patient was transfused 2 units is currently 9.5 g/dL EGD has been tentatively scheduled for today Psychiatry consult Further orders to follow
--- NOTE | 2017-02-15 20:05 | P.DS ---
Providers Date of admission: 02/12/17 21:15 Expected date of discharge: 02/15/17 Attending physician: Lamonte Mckoy Consults: 02/12/17 21:16 Consult Physician Routine Consulting Provider: Juliette Lowe Consult Reason/Comments: Depression Do you want consulting provider notified?: Yes, Notify in am 02/13/17 07:03 Consult Physician Routine Consulting Provider: Vinicius Michelle Consult Reason/Comments: gi bleed Do you want consulting provider notified?: Yes, Notify in am Primary care physician: [facility] Course: Patient was admitted with acute gastrointestinal bleeding hemoglobin of 6.9 he was transfused 2 units packed red cells, because of the severity of his current illness He was now medically cleared by the GI doctor Dr. Lobo General: HEENT: [PERRL. EOMI. No pharyngeal erythema or exudate.] Neck: [No adenopathy.] Cardiac: [Heart regular in rate and rhythm. No S3. No S4. No clicks, rubs. No murmur.] Lungs: [Clear to auscultation bilaterally.] Abdomen: [No mass. No organomegaly. Bowel sounds presnt and normoactive in all 4 quadrants.] Extremes: [No edema no cyanosis no claudication normal pulses] : [] Musculoskeletal: [No joint erythema, edema or tenderness.] Skin: [No rash.] Neurologic: [No lateralizing deficits. CN II - XII grossly intact.] Lymphatic: [No adenopathy.] Patient is medically cleared for transfer to the mental health unit Pertinent Studies: Current hemoglobin was 9.7 g/dL, the EGD demonstrated a large ulcer to the gastric antrum which was currently not actively bleeding Procedures: EGD Patient Condition at Discharge: Serious Plan - Discharge Summary New Discharge Prescriptions: New Pantoprazole [Protonix] 40 mg PO DAILY #30 tablet. No Action oxyCODONE HCL/ACETAMINOPHEN [Percocet 10-325 mg] 1 tab PO QID PRN PRN Reason: Pain Discharge Medication List oxyCODONE HCL/ACETAMINOPHEN [Percocet 10-325 mg] 1 tab PO QID PRN 04/20/16 [ History] Pantoprazole [Protonix] 40 mg PO DAILY #30 tablet. 02/15/17 [Rx] Follow up Appointment(s)/Referral(s): Vinicius Michelle MD [STAFF PHYSICIAN] - 1 Week Lamonte Mckoy Jr, DO [Primary Care Provider] - 1-2 days Care Plan Goals (MU): The plan at this time is to transfer patient to the mental health unit for evaluation and treatment, this individual is incapable of understanding his the treatment plan secondary to alcoholism Discharge Disposition: TRANSFER TO PSYCH HOSP/UNIT
== END 2017-02-15 20:37 | DRG 378 ==
LOC: EC 19:00 → 3SUR 21:15
PROVIDERS: ADMIT Family Medicine; ATTEND Family Medicine
PROC: 30233N1 Transfusion of Nonautologous Red Blood Cells into Peripheral Vein, Percutaneous Approach (ICD-10-PCS; 2017-02-13)
PROC: 0DB68ZX Excision of Stomach, Via Natural or Artificial Opening Endoscopic, Diagnostic (ICD-10-PCS; principal; 2017-02-14 09:00)
DX: K92.2 Gastrointestinal hemorrhage, unspecified (principal); R45.851 Suicidal ideations; D62 Acute posthemorrhagic anemia; K70.9 Alcoholic liver disease, unspecified; F32.9 Major depressive disorder, single episode, unspecified; F10.20 Alcohol dependence, uncomplicated; K25.9 Gastric ulcer, unspecified as acute or chronic, without hemorrhage or perforation; D50.0 Iron deficiency anemia secondary to blood loss (chronic); K44.9 Diaphragmatic hernia without obstruction or gangrene; K21.0 Gastro-esophageal reflux disease with esophagitis; G40.909 Epilepsy, unspecified, not intractable, without status epilepticus; F41.9 Anxiety disorder, unspecified; F17.210 Nicotine dependence, cigarettes, uncomplicated; Z87.11 Personal history of peptic ulcer disease
CPT/HCPCS: 36415; 43239; 74020; 80053; 80306; 80320; 81003; 82075; 82150; 82272; 82550; 82553; 83690; 84484; 85025; 85610; 85730; 86850; 86900; 86901; 86920; 88305; 88342; 93005; 96361; 96374; 96375; 99285

== ENCOUNTER 2017-02-15 20:24 | Inpatient (IN) | payer OTHER ==
[2017-02-15] MEDS ORDERED: MAG HYDROX/AL HYDROX/SIMETH 30 ML CUP PO PRN (20:31)
[2017-02-15] MEDS ORDERED: ZIPRASIDONE 20 MG VIAL IM PRN (20:31)
[2017-02-15] MEDS ORDERED: MAGNESIUM HYDROXIDE 2,400 MG/10 ML CUP PO PRN (20:31)
[2017-02-15] MEDS ORDERED: ACETAMINOPHEN TAB 325 MG TAB PO PRN (20:31)
[2017-02-15] MEDS ORDERED: LORazepam 1 MG TAB PO PRN (20:31)
[2017-02-15] MEDS ORDERED: LORazepam 2 MG/ML SYRINGE IM PRN (20:35)
[2017-02-16 06:53] VITALS: RESP 18
[2017-02-16] MEDS: PANTOPRAZOLE 40 MG TABLET PO SCH (07:55)
[2017-02-16 08:00] VITALS: BMI 23.8
[2017-02-16 09:05] LABS: Anisocytosis Slight; Basophils % (A) 0 %; CH 32.1; CHCM 30.7; Eosinophils # (A) 0.1 k/uL (0-0.7); Eosinophils % (A) 1 %; HCT 33.9 % (39.0-53.0); HDW 4.49; HGB 10.4 gm/dL (13.0-17.5); Hypochromasia Marked; Luc # (Auto) 0.21; Luc % (Auto) 2; Lymphocytes % (A) 10 %; MCH 32.3 pg (25.0-35.0); MCHC 30.7 g/dL (31.0-37.0); MCV 105.3 fL (80.0-100.0); Macrocytosis Marked; Mean Platelet Volume 7.7; Monocytes # (A) 0.8 k/uL (0-1.0); Monocytes % (A) 8 %; Neutrophils # (A) 7.8 k/uL (1.3-7.7); Neutrophils % (A) 79 %; Poikilocytosis Moderate; RBC 3.22 m/uL (4.30-5.90); RDW 18.1 % (11.5-15.5); WBC 9.8 k/uL (3.8-10.6); WBC (Perox) 9.74
[2017-02-16] MEDS: NICOTINE 14MG/24HR PATCH TRANSDERM SCH (09:31)
[2017-02-16 09:43] LABS: ALT 37 U/L (21-72); AST 42 U/L (17-59); Alkaline Phosphatase 117 U/L (38-126); Anion Gap 12 mmol/L; Blood Urea Nitrogen 5 mg/dL (9-20); Calcium 9.1 mg/dL (8.4-10.2); Carbon Dioxide 24 mmol/L (22-30); Chloride 99 mmol/L (98-107); Glucose 97 mg/dL (74-99); Non-African American GFR(MDRD) >60 (>60 ml/min/1.73 sqM); Potassium 3.7 mmol/L (3.5-5.1); Sodium 135 mmol/L (137-145); Total Bilirubin 1.2 mg/dL (0.2-1.3); Total Protein 7.5 g/dL (6.3-8.2)
[2017-02-16 10:23] LABS: Manual Review Performed; Polychromasia Present
--- NOTE | 2017-02-16 14:55 | P.HP ---
Psychiatric H&P - . H&P Date: 02/16/17 History & Physical: Allergies Allergy/AdvReac Type Severity Reaction Status Date / Time No Known Allergies Allergy Verified 02/16/17 07:37 Vital Signs Temp 97.3 F L 02/16/17 07:35 Pulse 103 H 02/16/17 06:52 Resp 18 02/16/17 07:35 BP 140/79 02/16/17 06:52 Pulse Ox Intake & Output 02/15/17 02/16/17 02/16/17 18:59 06:59 18:59 Weight 74.843 kg 71.2 kg Laboratory Last Values WBC 9.8 k/uL (3.8-10.6) 02/16/17 08:41 RBC 3.22 m/uL (4.30-5.90) L 02/16/17 08:41 Hgb 10.4 gm/dL (13.0-17.5) L 02/16/17 08:41 Hct 33.9 % (39.0-53.0) L 02/16/17 08:41 MCV 105.3 fL (80.0-100.0) H 02/16/17 08:41 MCH 32.3 pg (25.0-35.0) 02/16/17 08:41 MCHC 30.7 g/dL (31.0-37.0) L 02/16/17 08:41 RDW 18.1 % (11.5-15.5) H 02/16/17 08:41 Plt Count 351 k/uL (150-450) 02/16/17 08:41 Neutrophils % 79 % 02/16/17 08:41 Lymphocytes % 10 % 02/16/17 08:41 Monocytes % 8 % 02/16/17 08:41 Eosinophils % 1 % 02/16/17 08:41 Basophils % 0 % 02/16/17 08:41 Neutrophils # 7.8 k/uL (1.3-7.7) H 02/16/17 08:41 Lymphocytes # 1.0 k/uL (1.0-4.8) 02/16/17 08:41 Monocytes # 0.8 k/uL (0-1.0) 02/16/17 08:41 Eosinophils # 0.1 k/uL (0-0.7) 02/16/17 08:41 Basophils # 0.0 k/uL (0-0.2) 02/16/17 08:41 Manual Slide Review Performed 02/16/17 08:41 Polychromasia Present 02/16/17 08:41 Hypochromasia Marked 02/16/17 08:41 Poikilocytosis Moderate 02/16/17 08:41 Poikilocytosis (manual Present 02/16/17 08:41 Anisocytosis Slight 02/16/17 08:41 Macrocytosis Marked 02/16/17 08:41 Sodium 135 mmol/L (137-145) L 02/16/17 08:41 Potassium 3.7 mmol/L (3.5-5.1) 02/16/17 08:41 Chloride 99 mmol/L (98-107) 02/16/17 08:41 Carbon Dioxide 24 mmol/L (22-30) 02/16/17 08:41 Anion Gap 12 mmol/L 02/16/17 08:41 BUN 5 mg/dL (9-20) L 02/16/17 08:41 Creatinine 0.59 mg/dL (0.66-1.25) L 02/16/17 08:41 Est GFR (MDRD) Af Amer >60 (>60 ml/min/1.73 sqM) 02/16/17 08:41 Est GFR (MDRD) Non-Af >60 (>60 ml/min/1.73 sqM) 02/16/17 08:41 Glucose 97 mg/dL (74-99) 02/16/17 08:41 Calcium 9.1 mg/dL (8.4-10.2) 02/16/17 08:41 Total Bilirubin 1.2 mg/dL (0.2-1.3) 02/16/17 08:41 AST 42 U/L (17-59) 02/16/17 08:41 ALT 37 U/L (21-72) 02/16/17 08:41 Alkaline Phosphatase 117 U/L (38-126) 02/16/17 08:41 Total Protein 7.5 g/dL (6.3-8.2) 02/16/17 08:41 Albumin 3.9 g/dL (3.5-5.0) 02/16/17 08:41 TSH 2.810 mIU/L (0.465-4.680) 02/16/17 08:41 02/16/17 14:21 IDENTIFYING DATA: This patient is a 52-year-old male admitted to the medical floor for alcohol intoxication, with suicidal ideation, he was also treated for anemia. . . HISTORY OF PRESENT ILLNESS: The patient present presented to the emergency room with his for depression and suicidal ideation and alcohol use disorder. He was admitted to the medical floor due to several medical illnesses requiring treatment. It was noted that he was severely anemic with a hemoglobin of 6.9. When patient seen on medical floor he was receiving blood transfusion. At that time his also arrived. Patient remained on the medical floor for several days and received a second transfusion. He was transferred to MHU. Patient states he is not suicidal she would not do that to his and children. States he is never made a suicide attempt, states he has been here on 3 W but no visit was found. Patient states that he drinks anywhere from 12- 24 beers every day. He has not worked for 12 years. He is not on Social Security disability has been denied. states that they were denied because she was working and receiving a good salary. Now she has been laid off and working minimum wage. Patient denies depression and denies suicidal ideation, however says that he is frequently talking about regaining the garage so that when someone opens up the door he'll be there hanging. Patient becomes upset stating that that is just a joke. thinks that he is depressed but she is not sure he is irritable during the interview and marginally cooperative. PAST PSYCHIATRIC HISTORY: []Reports he had an admission here but I could not find the visit. States that he was having hallucinations at the time denies that he was using anything other than alcohol PAST MEDICAL HISTORY: History of alcoholism and alcoholic liver disease, abdominal pain, blood in his emesis. He also black stools it was tarry looking. This is since resolved. CHEMICAL DEPENDENCY HISTORY: Patient reports that he used to use cannabis when he was younger but hasn't used for quite some time currently is only drug use is alcohol. He reports he's had 2 rehabs could not recall the dates both at [facility] reports that he remained abstinent for maybe 2-3 weeks after each one and then something would trigger him to go back to drinking. States he has 3 DUIs the last one about 6 or 7 years ago FAMILY PSYCHIATRIC HISTORY: none FAMILY CHEMICAL DEPENDENCY HISTORY: father was etohic LEGAL HISTORY: 3 DUIs no pending issues SOCIAL HISTORY: Patient lives with his they have grown 2 children. They' ve been for 31 years is frustrated with his behavior and lack of willingness to make any changes they are now financially strapped due to the fact that she lost her well paying job. Patient has attempted to receive Social Security disability but has been denied. Says he cannot work. Good childhood, in [place] then here, parents when patient was 15. Graduated from . Worked until he had a seizure, says it was not etoh withdrawl. Has not worked for 10 years. MENTAL STATUS EXAM: Patient alert and oriented 3, good eye contact, fair groomed in hospital attire/street clothing. Speech normal volume, rate and production. Coherent, logical and goal directed thought process. No WILLY, no FOI. No TB/TW/ TI Denied auditory and visual hallucinations. Denied paranoid ideation, delusions or IOR. Memory grossly intact Cognition average Mood dysphoric, irritable, affect and constricted, congruent with mood. Denies suicidal ideation, denies homicidal ideation. Insight limited; Judgment grossly intact for treatment purposes IMPRESSIONS: Suicidal ideation ETOH Use Disorder, severe (ETOH Dependence) ETOH Induced mood disorder vs Depression, unspecified Anemia PLAN: Patient initially agreed to 3W admission once medically cleared. After medically cleared he refused. wrote petition, medicine attending did first cert, I completed 2nd cert. He will remain on psychiatric inpatient, for safety and clarification of diagnosis and treatment Suicide precautions, 15 min checks. Patient is passed danger for DTs. Will assess for depression vs etoh induced mood disorder Will proceed to court process.
[2017-02-17 05:54] VITALS: TEMP 98.1
[2017-02-17] MEDS: NICOTINE 14MG/24HR PATCH TRANSDERM SCH (08:58)
[2017-02-17] MEDS: PANTOPRAZOLE 40 MG TABLET PO SCH (08:58)
--- NOTE | 2017-02-17 13:11 | P.HPIM ---
History of Present Illness H&P Date: 02/17/17 Chief Complaint: alcholism,depression, suicidal thoughts Pt was admitted with above stated, as well as significant GI bleed, pt underwent transfusion x 2units prbc's as well as EGD. This pt's hgb was 6.9 g/ dl . The bleeding ws stabilized, The hgb increased to 9.7 gm/dl . this pt was stabilized then transfered to the mental health unit. Review of Systems Ears, nose, mouth and throat: Reports as per HPI Cardiovascular: Reports as per HPI Respiratory: Reports as per HPI, Reports cough Gastrointestinal: Reports as per HPI Genitourinary: Reports as per HPI Musculoskeletal: Reports as per HPI Integumentary: Reports as per HPI Neurological: Reports as per HPI Past Medical History Past Medical History: GERD/Reflux, GI Bleed, Seizure Disorder Additional Past Medical History / Comment(s): chronic hip and upper back pain. History of Any Multi-Drug Resistant Organisms: None Reported Past Surgical History: Back Surgery, Orthopedic Surgery Additional Past Surgical History / Comment(s): left hip right hip Past Anesthesia/Blood Transfusion Reactions: No Reported Reaction Past Psychological History: Anxiety, Bipolar, Depression Smoking Status: Current every day smoker Past Alcohol Use History: Daily, Heavy Additional Past Alcohol Use History / Comment(s): 12-24 beers a day Past Drug Use History: None Reported - Past Family History Father Additional Family Medical History / Comment(s): cirrosis of the liver Medications and Allergies Home Medications Medication Instructions Recorded Confirmed Type oxyCODONE HCL/ACETAMINOPHEN 1 tab PO QID PRN 04/20/16 02/16/17 History [Percocet 10-325 mg] Allergies Allergy/AdvReac Type Severity Reaction Status Date / Time No Known Allergies Allergy Verified 02/16/17 07:37 Physical Exam Osteopathic Statement: *. No significant issues noted on an osteopathic structural exam other than those noted in the History and Physical/Consult. Vitals: Vital Signs Temp Pulse Resp BP 02/17/17 05:53 98.1 F 105 H 18 124/82 02/16/17 17:24 89 18 164/88 02/16/17 14:46 100 18 138/81 Results CBC & Chem 7: 02/16/17 08:41 02/16/17 08:41 Thrombosis Risk Factor Assmnt - Choose All That Apply Any of the Below Risk Factors Present?: Yes Each Factor Represents 1 point: Age 41-60 years Other Risk Factors: No Other congenital or acquired thrombophilia - If yes, enter type in comment: No Thrombosis Risk Factor Assessment Total Risk Factor Score: 1 Thrombosis Risk Factor Assessment Level: Low Risk Assessment and Plan (1) Acute blood loss anemia Narrative/Plan: will continue to monitor hgb Status: Acute (2) Depression Narrative/Plan: evaluate and treat in mental health unit Status: Acute
--- NOTE | 2017-02-17 14:56 | P.PN ---
Progress Note - Text INTERVERAL HISTORY: Discuss patient in team treatment meeting, review of record , received past history from treating psychiatrist Dr. Kristofer Johnson, met with patient. Patient was diagnosed by Dr. Johnson in September 2012 with bipolar disorder type II, mixed episode; generalized anxiety disorder; alcohol dependence; cognitive disorder NOS; and learning disorder. Patient did not keep follow-up appointments Patient received a copy of the court slashed referral process and tore it up in front of the nurse and threw it back at her. Patient visible on the unit complaining to the patient advocate that he should not have had program writer as his doctor showing his wrist band is having another doctor's name. Today patient was seen with a walker, vs WC, he was pleasant, cooperative. Patient again denies suicidal ideation, says we are blowing out of proportion, misinterpreting, and may be even putting words in his mouth. Asked him if he thought that his would make something up or lie, he says no he doesn't think she would that she might have misinterpreted. Discussed the history that I received about him being diagnosed with bipolar disorder by Dr. Johnson, he says he recalls that recalls that he never went back to see him and cannot recall any medication. Discussed possible medication he declined but said he would think about it. Towards the end of the session getting frustrated irritated, saying you can't throw me in [facility]. Explained to him again in the process that he can accept the deferral date or that he would go to a full hearing. MENTAL STATUS EXAM: Patient alert and oriented 3, good eye contact, well groomed in hospital attire/street clothing. Speech normal volume, rate and production. Coherent, logical and goal directed thought process. No WILLY, no FOI. No TB/TW/ TI Denied auditory and visual hallucinations. Denied paranoid ideation, delusions or IOR. Memory grossly intact Cognition average Mood dysphoric, irritable, affect and constricted, congruent with mood. Denies suicidal ideation, denies homicidal ideation. Insight limited; Judgment grossly intact for treatment purposes MMSE:28 IMPRESSIONS: ETOH Use Disorder, severe (ETOH Dependence) Suicidal ideation by report of Bipolar II, mre mixed (by history) Learning Disorder (by history) Anemia PLAN: Continue psychiatric inpatient, for safety and clarification of diagnosis and treatment Suicide precautions, 15 min checks. Patient is passed danger for DTs. D/C CIWA, D/C lorazepam Will start depakote, as best for Bipolar ii, patient declined Will start revia 50mg for sustained abstinence.Patient declined Will proceed to court process. Laboratory Tests 02/16/17 02/16/17 08:41 08:41 RBC 3.22 L Hgb 10.4 L Hct 33.9 L MCV 105.3 H MCH 32.3 MCHC 30.7 L RDW 18.1 H Plt Count 351 Neutrophils % 79 Lymphocytes % 10 Monocytes % 8 Eosinophils % 1 Basophils % 0 Neutrophils # 7.8 H Sodium 135 L Potassium 3.7 Chloride 99 Carbon Dioxide 24 Anion Gap 12 BUN 5 L Creatinine 0.59 L Est GFR (MDRD) Af Amer >60 Est GFR (MDRD) Non-Af >60 Total Bilirubin 1.2 AST 42 ALT 37 TSH 2.810
[2017-02-18 06:40] VITALS: BP 166/82; PULSE 72
[2017-02-18] MEDS: NICOTINE 14MG/24HR PATCH TRANSDERM SCH (08:43)
[2017-02-18] MEDS: PANTOPRAZOLE 40 MG TABLET PO SCH (08:44)
--- NOTE | 2017-02-18 13:00 | P.DS ---
Providers Date of admission: 02/15/17 20:25 Expected date of discharge: 02/18/17 Attending physician: Juliette Lowe MD Consults: 02/15/17 20:31 Consult Physician Routine Consulting Provider: Lamonte Mckoy Jr Consult Reason/Comments: follow up H & P Do you want consulting provider notified?: Yes Primary care physician: [facility] Course: ADMISSION HISTORY: Patient was transferred from medical floor after being admitted for bleeding ulcer and receiving 2 pints of blood. Patient was petitioned by his for statements she claimed he made of wanting to kill himself. Patient has denied continually any suicidal ideation. States either she misinterpreted what he was saying, and that he was choking if he sat it. He does not admit to ever making a statement about wanting to . Today in discussing with his the court proceedings she declined to present the petition therefore he agreed to a voluntary admission. But wanting to leave today. Patient was admitted to the mental health unit, he was irritable and angry about this but adjusted to the unit and was cooperative. We were able to find some past history of being seen by Dr. Johnson in September 2012 with bipolar disorder type II, mixed episode; generalized anxiety disorder ; alcohol dependence; cognitive disorder NOS; and learning disorder. Patient did not keep follow-up appointments. In discussing this with the patient he remembers seeing him, doesn't remember being given any medication or that he was supposed to return for treatment. Patient states that he was drinking when he saw him and has never had any sobriety longer than 2 weeks. Patient may or may not have an independent mood disorder, it is not being evidenced here. His sleep is good, his appetite is good. No evidence of hypomania or imani and patient does not endorse the symptoms. Patient denies suicidal ideation. Patient will be released today. MENTAL STATUS EXAM: Patient alert and oriented 3, good eye contact, well groomed in street clothing. Speech normal volume, rate and production. Coherent, logical and goal directed thought process. No WILLY, no FOI. No TB/TW/ TI Denied auditory and visual hallucinations. Denied paranoid ideation, delusions or IOR. Memory grossly intact Cognition average Mood neutral, affect constricted, congruent with mood. Denies suicidal ideation, denies homicidal ideation. Insight limited; Judgment grossly intact for treatment purposes [id number] IMPRESSIONS: ADMISSION DIAGNOSES: ETOH Use Disorder, severe (ETOH Dependence) Suicidal ideation by report of Bipolar II, mre mixed (by history) Learning Disorder (by history) Anemia DISCHARGE DIAGNOSES: ETOH Use Disorder, severe (ETOH Dependence) R/O Mood Disorder vs etoh induced mood disorder Learning Disorder (by history) Anemia PLAN: Patient is safe for discharge today Patient declined rehab. Patient does not intend to stop drinking. Social work will set up follow-up appointment with [facility], patient will call his friend to see if he can pick him up since his is working. Pertinent Studies: none Procedures: none Patient Condition at Discharge: Fair Plan - Discharge Summary New Discharge Prescriptions: No Action oxyCODONE HCL/ACETAMINOPHEN [Percocet 10-325 mg] 1 tab PO QID PRN PRN Reason: Pain Pantoprazole [Protonix] 40 mg PO DAILY #30 tablet. Discharge Medication List oxyCODONE HCL/ACETAMINOPHEN [Percocet 10-325 mg] 1 tab PO QID PRN 04/20/16 [ History] Pantoprazole [Protonix] 40 mg PO DAILY #30 tablet. 02/15/17 [Rx]
[2017-02-18] MEDS ORDERED: IBUPROFEN 800 MG TAB PO PRN (13:12)
== END 2017-02-18 14:18 | disposition home or self-care (01) | DRG 885 ==
LOC: 3MHU 20:25
PROVIDERS: ADMIT Psychiatry & Neurology Addiction Medicine; ATTEND Psychiatry & Neurology Addiction Medicine
DX: F31.81 Bipolar II disorder (principal); D62 Acute posthemorrhagic anemia; R45.851 Suicidal ideations; K70.9 Alcoholic liver disease, unspecified; F10.20 Alcohol dependence, uncomplicated; F17.200 Nicotine dependence, unspecified, uncomplicated; F41.1 Generalized anxiety disorder; F81.9 Developmental disorder of scholastic skills, unspecified; K21.9 Gastro-esophageal reflux disease without esophagitis; G40.909 Epilepsy, unspecified, not intractable, without status epilepticus; M25.559 Pain in unspecified hip; M54.9 Dorsalgia, unspecified; G89.29 Other chronic pain
CPT/HCPCS: 80053; 84443; 85025

== ENCOUNTER → 2017-08-30 | Outpatient (CLI) | payer OTHER ==
--- NOTE | 2017-08-30 12:31 | XR ---
EXAMINATION TYPE: XR Hip Bilateral Complete DATE OF EXAM: 08/30/2017 CLINICAL HISTORY: pain TECHNIQUE: AP and frogleg views of the right hip are obtained. COMPARISON: None. FINDINGS: There is no acute fracture/dislocation evident. Postoperative changes noted of dynamic com pression screw and intramedullary jean-claude placement. Mild degenerative joint space narrowing. The overlyi ng soft tissue appears unremarkable. IMPRESSION: 1. There is no acute fracture or dislocation. ICD 10 NO FRACTURE, INITIAL EVALUATION EXAMINATION TYPE: XR Hip Bilateral Complete DATE OF EXAM: 08/30/2017 CLINICAL HISTORY: pain TECHNIQUE: AP and frogleg views of the left hip are obtained. COMPARISON: None. FINDINGS: There is no acute fracture/dislocation evident. Postoperative changes left hip. Moderate d egenerative joint space narrowing. The overlying soft tissue appears unremarkable.
== END | disposition home or self-care (01) ==
LOC: RADXRMAIN 11:58
PROVIDERS: ATTEND Family Medicine
DX: M25.552 Pain in left hip (principal); M25.551 Pain in right hip; Z96.649 Presence of unspecified artificial hip joint; Z98.890 Other specified postprocedural states
CPT/HCPCS: 73521

== ENCOUNTER 2020-08-12 06:02 | Inpatient (IN) | payer OTHER ==
[2020-08-12] MEDS ORDERED: MORPHINE SULFATE 4 MG/ML SYRINGE IVP STA (06:17)
[2020-08-12] MEDS ORDERED: ONDANSETRON 4 MG/2 ML VIAL IVP STA (06:17)
--- NOTE | 2020-08-12 06:23 | ED ---
Fall HPI - General Chief Complaint: Fall Stated Complaint: Fall Time Seen by Provider: 08/12/20 06:13 Source: patient, EMS, RN notes reviewed Mode of arrival: EMS Limitations: no limitations - History of Present Illness Initial Comments: 55-year-old male presents emergency Department with chief complaint of a fall. Patient states that he got up out of his bed to go to the bathroom states he needed to urinate states he went to slippers on but states that the optometrist owner fully and states he tripped and fell the ground. Patient has left leg pain. Patient does admit that he's had prior surgery in which is a plate to his left leg. Patient states that he did lose urine but he was aware this he was not incontinent of his urine. Patient denies any head injury no loss conscious denies any neck, back, chest pain. - Related Data Home Medications Medication Instructions Recorded Confirmed Acetaminophen [Tylenol] 1,000 mg PO Q8H PRN 08/12/20 08/12/20 Naproxen Sodium [Aleve] 220 mg PO Q12HR PRN 08/12/20 08/12/20 Allergies Allergy/AdvReac Type Severity Reaction Status Date / Time No Known Allergies Allergy Verified 02/16/17 07:37 Review of Systems ROS Statement: Those systems with pertinent positive or pertinent negative responses have been documented in the HPI. ROS Other: All systems not noted in ROS Statement are negative. Past Medical History Past Medical History: GERD/Reflux, GI Bleed, Seizure Disorder Additional Past Medical History / Comment(s): chronic hip and upper back pain. History of Any Multi-Drug Resistant Organisms: None Reported Past Surgical History: Back Surgery, Orthopedic Surgery Additional Past Surgical History / Comment(s): left hip right hip Past Anesthesia/Blood Transfusion Reactions: No Reported Reaction Past Psychological History: Anxiety, Bipolar, Depression Smoking Status: Current every day smoker Past Alcohol Use History: Daily, Heavy Past Drug Use History: None Reported, Marijuana - Past Family History Father Additional Family Medical History / Comment(s): cirrosis of the liver General Exam Limitations: no limitations General appearance: alert, in no apparent distress Head exam: Present: atraumatic, normocephalic, normal inspection Eye exam: Present: normal appearance, PERRL, EOMI. Absent: scleral icterus, conjunctival injection, periorbital swelling Respiratory exam: Present: normal lung sounds bilaterally. Absent: respiratory distress, wheezes, rales, rhonchi, stridor Cardiovascular Exam: Present: regular rate, normal rhythm, normal heart sounds. Absent: systolic murmur, diastolic murmur, rubs, gallop, clicks GI/Abdominal exam: Present: soft, normal bowel sounds. Absent: distended, tenderness, guarding, rebound, rigid Extremities exam: Present: other (Tenderness to left thigh, patient is rotated, patient has pain with range of motion leg is neurovascularly intact there is no distal leg tenderness) Back exam: Present: full ROM. Absent: tenderness, paraspinal tenderness, vertebral tenderness Neurological exam: Present: alert, oriented X3, CN II-XII intact, reflexes normal. Absent: motor sensory deficit Skin exam: Present: warm, dry, intact, normal color. Absent: rash Course Vital Signs 08/12/20 06:05 Temperature 98.4 F Pulse Rate 86 Respiratory 16 Rate Blood Pressure 179/106 O2 Sat by Pulse 97 Oximetry Medical Decision Making - Medical Decision Making Case discussed with leonid escoto on-call for Dr. Wiggins. Patient will be admitted medical consult. X-rays shows evidence of left IT fracture Disposition Clinical Impression: Fall, Fracture, intertrochanteric, left femur Disposition: ADMITTED IP TO THIS [facility] Condition: Fair Referrals: None,Stated [Primary Care Provider] - 1-2 days
--- NOTE | 2020-08-12 07:02 | XR ---
EXAMINATION TYPE: XR pelvis AP view, XR femur LT DATE OF EXAM: 08/12/2020 CLINICAL HISTORY: Pelvic and left femur pain. Fall injury. TECHNIQUE: A single AP view of the pelvis is obtained. Two views of the left femur are obtained. COMPARISON: CT abdomen and pelvis May 01, 2016 FINDINGS: There is no acute fracture/dislocation evident in the pelvis. The sacroiliac joints show symmetric m ild to moderate narrowing and joint space sclerosis. Pubic symphysis is intact. Overlying vascular c alcification is seen. There is partial visualization of surgical hardware through healed fracture rig ht hip. 2 views of left femur redemonstrate surgical changes left acetabulum. There is linear lucency consist ent with acute nondisplaced comminuted fracture intertrochanteric level left proximal femur. Moderate joint space loss left hip redemonstrated. Visualized portion of the left knee is within normal limit s. Osseous structures demineralized. Arterial vascular calcification noted. IMPRESSION: There is acute comminuted nondisplaced intertrochanteric fracture left proximal femur. (Initial encounter closed type post traumatic fracture)
[2020-08-12] MEDS ORDERED: NALOXONE 0.4 MG/ML 1 ML VIAL IV PRN (07:48)
[2020-08-12] MEDS ORDERED: HYDROmorphone 0.5 MG/0.5 ML SYRINGE IVP PRN (07:48)
[2020-08-12] MEDS ORDERED: ONDANSETRON 4 MG/2 ML VIAL IVP PRN (07:48)
[2020-08-12 09:20] LABS: Basophils # (A) 0.1 k/uL (0-0.2); Basophils % (A) 1 %; Eosinophils % (A) 0 %; HCT 48.9 % (39.0-53.0); HGB 16.3 gm/dL (13.0-17.5); Lymphocytes # (A) 1.1 k/uL (1.0-4.8); Lymphocytes % (A) 7 %; MCH 31.1 pg (25.0-35.0); MCHC 33.4 g/dL (31.0-37.0); Mean Platelet Volume 10.4; Monocytes # (A) 0.8 k/uL (0-1.0); Monocytes % (A) 5 %; Neutrophils # (A) 13.3 k/uL (1.3-7.7); Neutrophils % (A) 86 %; Platelet Count 269 k/uL (150-450); RBC 5.25 m/uL (4.30-5.90); RDW 13.4 % (11.5-15.5); WBC 15.4 k/uL (3.8-10.6)
--- NOTE | 2020-08-12 09:22 | XR ---
EXAMINATION TYPE: XR chest 1V DATE OF EXAM: 08/12/2020 COMPARISON: Prior chest x-ray 05/04/2016 HISTORY: Preop femur fracture TECHNIQUE: Single frontal view of the chest is obtained. FINDINGS: Posterior fusion changes are present in the thoracic spine. No evident pneumothorax or ple ural effusion, no airspace disease. Calcification is noted along the left hemidiaphragm. Cardiac medi astinal silhouette is within normal limits. IMPRESSION: No acute process.
[2020-08-12 09:26] LABS: ALT 22 U/L (4-49); AST 40 U/L (17-59); African American GFR (CKD) >90 (>60 ml/min/1.73 sqM); Albumin 4.7 g/dL (3.5-5.0); Alkaline Phosphatase 101 U/L (38-126); Anion Gap 12 mmol/L; Blood Urea Nitrogen 12 mg/dL (9-20); Calcium 9.4 mg/dL (8.4-10.2); Carbon Dioxide 24 mmol/L (22-30); Chloride 95 mmol/L (98-107); Glucose 100 mg/dL (74-99); Non-African American GFR(CKD) >90 (>60 ml/min/1.73 sqM); Sodium 131 mmol/L (137-145); Total Bilirubin 1.6 mg/dL (0.2-1.3)
[2020-08-12 09:28] LABS: Potassium 4.9 mmol/L (3.5-5.1)
[2020-08-12 09:44] LABS: Partial Thromboplastin Time 25.4 sec (22.0-30.0); Prothrombin Time 10.5 sec (9.0-12.0)
[2020-08-12] MEDS: HYDROmorphone 1 MG/ML 1 ML SYRINGE IVP PRN ×2 (10:50→17:20)
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
[2020-08-12] MEDS ORDERED: ACETAMINOPHEN TAB 500 MG TAB PO PRN (17:18)
[2020-08-12] MEDS ORDERED: cloNIDine HCL 0.1 MG TAB PO PRN (17:19)
[2020-08-12] MEDS ORDERED: TEMAZEPAM 15 MG CAP PO PRN (17:19)
[2020-08-12 17:53] LABS: Appearance,Urine Clear (Clear); Bilirubin,Urine Negative (Negative); Blood,Urine Negative (Negative); Color,Urine Yellow; Glucose,Urine (UA) Negative (Negative); Hyaline Casts,Urine 1 /lpf (0-2); Ketones,Urine Trace (Negative); Leukocyte Esterase,Urine Negative (Negative); Mucus,Urine Occasional /hpf; Nitrite,Urine Negative (Negative); Protein,Urine 1+ (Negative); RBC,Urine 2 /hpf (0-5); Specific Gravity,Urine 1.021 (1.001-1.035); Squamous Epithelial Cell,Urine <1 /hpf (0-4); WBC,Urine 2 /hpf (0-5)
[2020-08-12] MEDS: PANTOPRAZOLE 40 MG TABLET PO SCH (19:46)
[2020-08-12] MEDS: NICOTINE 14MG/24HR PATCH TRANSDERM SCH (20:31)
[2020-08-12] MEDS: cloNIDine HCL 0.1 MG TAB PO SCH ×2 (20:31→20:35)
[2020-08-12] MEDS ORDERED: HEPARIN SODIUM,PORCINE 5,000 UNIT/ML 1 ML VIAL SQ SCH (21:00)
--- NOTE | 2020-08-12 21:07 | HP ---
HISTORY AND PHYSICAL DATE OF SERVICE: 08/12/2020 CHIEF COMPLAINT: Fall and left hip pain. HISTORY OF PRESENT ILLNESS: This is a 55-year-old gentleman with a past medical history of multiple myeloma, GERD, GI bleed, seizure disorder, not being followed by any primary physician in the outpatient setting, also history of anxiety, bipolar depression. The patient has significant alcohol intake, at least 2-4 beers according to him. The patient apparently got up from his bed to go to the bathroom and he needed to urinate and then the patient tripped and fell on the ground. The patient is complaining of left hip and left leg pain. Patient came to [facility] and was found to have left intertrochanteric fracture. Acute nondisplaced fracture was noted and the patient was also seen by Dr. Wiggins who recommend surgical intervention, probably intramedullary nailing of the left intertrochanteric hip fracture. The patient is slightly tremulous, possibly going through some withdrawals. There is no history of fever, rigors or chills. No history of headache, loss of consciousness or seizures. Patient previous exercise tolerance appears to be excellent and chest x-ray showed no acute abnormality. The labs are showing sodium 131. Covid -19 was negative. PAST MEDICAL HISTORY: History of GERD, GI bleed, seizure disorder. Chronic hip and back pain. HOME MEDICATIONS: Prior to admission include Naprosyn and Tylenol p.r.n. ALLERGIES: None. FAMILY HISTORY: Family history of cirrhosis of the liver. SOCIAL HISTORY: History of smoking, alcohol as mentioned. REVIEW OF SYSTEMS: ENT: No diminished vision. No diminished hearing. CARDIOVASCULAR: No angina. RESPIRATION: No cough. GI no nausea or vomiting. no dysuria. NERVOUS SYSTEM: No numbness, weakness. ALLERGY/IMMUNOLOGY: No asthma or hayfever. MUSCULOSKELETAL as mentioned earlier. HEMATOLOGY/ONCOLOGY: No history of anemia. ENDOCRINE: No history of diabetes or hypothyroidism. CONSTITUTIONAL: As mentioned earlier. DERMATOLOGY negative. RHEUMATOLOGY: Negative. PSYCHIATRIC: As mentioned earlier. PHYSICAL EXAMINATION: Alert and oriented times three. Pulse is 102. Blood pressure 160/93, respirations 16, temperature 97 degrees, pulse ox 98% on room air. HEENT: Conjunctivae normal. NECK: No JVD. CARDIOVASCULAR: S1, S2 muffled. RESPIRATORY SYSTEM: Breath sounds diminished at the bases. A few scattered rhonchi and crackles. ABDOMEN: Soft, nontender. No mass palpable. LEGS: Significant pain on movement of the left leg present. NERVOUS SYSTEM: Higher functions as mentioned earlier. Moves all 4 limbs. No focal motor or sensory deficits. LYMPHATICS: No lymph nodes palpable in the neck, axillae or groin. SKIN: No ulcer, rash or bleeding. JOINTS: No active deforming arthropathy. Some mild tremors present. LABS: At this time shows WBC 15.6, hemoglobin 16.2, sodium 139, potassium 4.9. ASSESSMENT: 1. Fall and left hip intertrochanteric femur fracture. 2. Hyponatremia. 3. History of ETOH with minimal withdrawal symptoms. 4. Hypertension. 5. Increased WBC. 6. Minimally elevated bilirubin. 7. History of gastroesophageal reflux disease. 8. History of gastrointestinal bleed. 9. History of seizure disorder. 10.Chronic hip and back pain. 11.History of back surgery. 12.Anxiety, bipolar depression. 13.History of nicotine dependence. 14.History of ETOH. 15.History of THC. 16.FULL CODE. RECOMMENDATIONS AND DISCUSSION: In this 55-year-old gentleman who presented with multiple complex medical issues, at this time, I recommend continue the current medications. CIWA protocol. Otherwise, patient is medically stable for surgery, cleared medically for surgery. Otherwise, I would recommend DVT prophylaxis, incentive spirometry. Clonidine for hypertension. We will monitor the patient closely with you and patient may be asked to follow up with primary physician closely after discharge. Prognosis guarded but however the patient is once again medically stable to undergo the surgery. See orders for details. MMODL / IJN: [id number] /
[2020-08-12] MEDS: HYDROcodone/APAP 5-325MG 1 EACH TAB PO PRN (21:20)
[2020-08-13] MEDS: HYDROcodone/APAP 5-325MG 1 EACH TAB PO PRN (04:51)
[2020-08-13 07:34] LABS: Basophils # (A) 0.1 k/uL (0-0.2); Basophils % (A) 1 %; Eosinophils # (A) 0.1 k/uL (0-0.7); Eosinophils % (A) 1 %; HCT 45.3 % (39.0-53.0); HGB 15.6 gm/dL (13.0-17.5); Lymphocytes # (A) 1.8 k/uL (1.0-4.8); Lymphocytes % (A) 17 %; MCHC 34.4 g/dL (31.0-37.0); Mean Platelet Volume 7.3; Monocytes # (A) 0.7 k/uL (0-1.0); Monocytes % (A) 6 %; Neutrophils # (A) 7.9 k/uL (1.3-7.7); Neutrophils % (A) 74 %; Platelet Count 301 k/uL (150-450); RBC 4.87 m/uL (4.30-5.90); RDW 13.6 % (11.5-15.5); WBC 10.7 k/uL (3.8-10.6)
[2020-08-13] MEDS ORDERED: LACTATED RINGERS 1,000 ML IV ONE ×2 (08:33→11:01)
[2020-08-13] MEDS ORDERED: ONDANSETRON 4 MG/2 ML VIAL IVP ONE ×2 (08:45)
[2020-08-13] MEDS ORDERED: DEXAMETHASONE SOD PHOSPHATE 4 MG/ML 1 ML VIAL IVP ONE (08:45)
[2020-08-13] MEDS ORDERED: ceFAZolin 1,000 MG in SODIUM CHLORIDE 0.9% 1,000 ML IRRIGATION ONE (11:01)
[2020-08-13 11:25] LABS: African American GFR (CKD) 114.9 (60.0-200.0); Anion Gap 9.8 mmol/L (4.00-12.00); Calcium 9.3 mg/dL (8.7-10.3); Carbon Dioxide 24.2 mmol/L (21.6-31.8); Non-African American GFR(CKD) 99.2 (60.0-200.0); Potassium 4.3 mmol/L (3.5-5.5)
[2020-08-13] MEDS ORDERED: HYDROmorphone 0.5 MG/0.5 ML SYRINGE IVP PRN (11:44)
[2020-08-13] MEDS ORDERED: HYDROcodone/APAP 5-325MG 1 EACH TAB PO PRN (11:44)
--- NOTE | 2020-08-13 11:44 | P.OP ---
Date of Procedure: 08/13/20 Preoperative Diagnosis: Intertrochanteric fracture left hip Postoperative Diagnosis: Intertrochanteric fracture left hip Procedure(s) Performed: Trochanteric nailing left hip Implants: Synthes TF and a 11 mm x [id number] mm trochanteric nail with a 95 mm fenestrated helical blade and a 34 mm distal locking screw Anesthesia: SULAIMAN Surgeon: Chicho Wiggins Welder Gas Automatic #1: Christiano Jhaveri Estimated Blood Loss (ml): 25 Pathology: none sent Condition: stable Disposition: PACU Indications for Procedure: 55-year-old patient seen with a left hip intertrochanteric fracture. I recommended trochanteric nailing. Patient was agreeable and consent was obtained. Operative Findings: See description of procedure Description of Procedure: Patient was taken to the operative suite. The patient underwent a general anesthetic by the department of anesthesia. The patient was transferred to the fracture table. The left lower extremity was placed in longitudinal traction with adduction and internal rotation. The right lower chest placed in well- padded well-leg miller. C-arm was brought in confirming adequate alignment of the fracture. The C-arm was pulled back. Left hip area was prepped and draped in the normal sterile orthopedic fashion. I made an incision proximal to the greater trochanter sharply through skin. I dissected down to the IT band. I made an incision through the IT band. I placed my guidewire into the tip of the greater trochanter and introduced at intramedullary. I confirmed position on AP and lateral intraoperative imaging. I now opened the proximal tip of the greater trochanter with the reamer. I now introduced appropriate size trochanteric nail over the guidewire with the outrigger and tapped it down into an adequate position. The head neck guide was now placed in position and incision was made in that was brought down to the bone. I put placed a guidewire now into the head neck complex confirming adequate positioning on AP and lateral intraoperative imaging. I reamed over the guidewire and placed the appropriate length helical screw into head neck complex with good positioning noted. That was secured and placed the set screw. I now turned my attention to the distal locking screw. Small incision was made in that area. The guide was placed through the outrigger all way down to the bone. A drill hole was made through the distal locking screw. An appropriate screw was inserted. Good purchase was noted. I removed the entire outrigger. There was good positioning of the fracture and internal fixation confirmed on fluoroscopy. Spot films were obtained to document that. The wounds were irrigated. The IT band was repaired with #1 Vicryl. Subcu soft tissues repaired with 2-0 Vicryl. All skin incisions were repaired with skin katerine. I applied sterile dressings. Patient was awakened and transferred to a bed in the recovery stable condition. Juanjose GARRIDO assisted procedure.
--- NOTE | 2020-08-13 11:53 | FL ---
Fluoroscopy HISTORY: Fracture 67 seconds fluoroscopy time supplied to the referring clinician. 4 intraoperative C-arm images docum ent the procedure. See dictated report from orthopedic surgery.
--- NOTE | 2020-08-13 11:55 | XR ---
Limited left hip history: Fracture 4 intraoperative C-arm images document the procedure.
[2020-08-13] MEDS: HYDROmorphone 0.5 MG/0.5 ML SYRINGE IVP ONE ×2 (12:09→12:26)
[2020-08-13] MEDS: cloNIDine HCL 0.1 MG TAB PO SCH ×3 (13:10→21:16)
[2020-08-13] MEDS: PANTOPRAZOLE 40 MG TABLET PO SCH (13:10)
[2020-08-13] MEDS: THIAMINE 100 MG TAB PO SCH (13:16)
[2020-08-13] MEDS: MULTIVITAMINS, THERA 1 EACH TAB PO SCH (13:16)
[2020-08-13] MEDS: FOLIC ACID 1 MG TAB PO SCH (13:16)
[2020-08-13] MEDS: NICOTINE 14MG/24HR PATCH TRANSDERM SCH (13:16)
[2020-08-13] MEDS: SODIUM CHLORIDE 0.9% 1,000 ML IV SCH (14:25)
[2020-08-13] MEDS ORDERED: LORazepam 2 MG/ML INJ IV PRN ×3 (17:34)
[2020-08-13] MEDS ORDERED: THIAMINE 100 MG/ML 2 ML VIAL IM STA (17:34)
[2020-08-13] MEDS ORDERED: PROPOFOL 10 MG/ML 20 ML VIAL IV ONE (18:35)
[2020-08-13] MEDS ORDERED: GLYCOPYRROLATE 0.2 MG/ML 2 ML VIAL ONE (18:35)
[2020-08-13] MEDS ORDERED: ROCURONIUM 10 MG/ML (10 ML VIAL) IV ONE (18:35)
[2020-08-13] MEDS ORDERED: fentaNYL (PF) 50 MCG/ML 2 ML AMP ONE (18:35)
[2020-08-13] MEDS ORDERED: NEOSTIGMINE 1 MG/ML 10 ML VIAL ONE (18:35)
[2020-08-13] MEDS ORDERED: SUCCINYLCHOLINE CHLORIDE 100 MG/5 ML SYR IV ONE (18:35)
[2020-08-13] MEDS ORDERED: HYDROmorphone (PF) 1 MG/ML ONE (18:35)
[2020-08-13] MEDS ORDERED: LIDOCAINE 1% INJ 10MG/ML (20 ML MDV) ONE (18:35)
[2020-08-13] MEDS ORDERED: MIDAZOLAM 2 MG/2 ML VIAL ONE (18:35)
--- NOTE | 2020-08-13 19:19 | PN ---
PROGRESS NOTE DATE OF SERVICE: 08/13/2020 This 55 -year-old gentleman admitted with fall and left hip pain and left femoral fracture, underwent trochanteric nailing of the left hip by Dr. Wiggins using a Synthes TF nail. The patient tolerated the procedure well. No chest pain. No palpitations. No fever. PHYSICAL EXAMINATION: Alert and oriented times three. Pulse 101. Blood pressure 119/77, respirations 20. Temperature normal. Pulse ox 94% on room air. HEENT: Conjunctivae normal. NECK: No JVD. CARDIOVASCULAR: S1, S2. RESPIRATORY SYSTEM: Breath sounds diminished at the bases. No rhonchi. No crackles. ABDOMEN: Soft. LEGS: Status post surgery. NERVOUS SYSTEM: No focal deficits. LABS: WBC 10.7, sodium 132. UA noted. Covid-19 is negative. ASSESSMENT: 1. Fall and left hip intertrochanteric fracture status post trochanteric nailing of the left hip. 2. Hyponatremia. 3. History of ETOH and minimal withdrawal symptoms. 4. Hypertension. 5. Increased WBC. 6. Minimally elevated bilirubin, improved. 7. History of gastroesophageal reflux disease. 8. History of gastrointestinal bleed. 9. History of seizure disorder. 10.History of chronic hip and back pain. 11.History of back surgery. 12.History of anxiety/bipolar depression. 13.History of nicotine dependence. 14.History EtOH. 15.History of THC. 16.FULL CODE. RECOMMENDATIONS AND DISCUSSION: I recommend to continue current medications, management and symptomatic treatment. Otherwise, at this time, also recommend DVT prophylaxis. Continue with p.r.n. Ativan and clonidine. Otherwise, we will monitor the patient closely and further recommendations to follow. MMODL / IJN: [id number] /
[2020-08-13] MEDS: HYDROmorphone 1 MG/ML 1 ML SYRINGE IVP PRN (19:21)
[2020-08-14] MEDS: HYDROcodone/APAP 5-325MG 1 EACH TAB PO PRN ×5 (00:16→22:14)
[2020-08-14] MEDS: SODIUM CHLORIDE 0.9% 1,000 ML IV SCH ×2 (00:18→11:37)
[2020-08-14 06:47] LABS: Basophils % (A) 0 %; Eosinophils # (A) 0.1 k/uL (0-0.7); Eosinophils % (A) 1 %; HCT 38.9 % (39.0-53.0); HGB 13.2 gm/dL (13.0-17.5); Lymphocytes # (A) 2.5 k/uL (1.0-4.8); Lymphocytes % (A) 25 %; MCH 31.6 pg (25.0-35.0); MCHC 33.9 g/dL (31.0-37.0); MCV 93.3 fL (80.0-100.0); Mean Platelet Volume 7.5; Monocytes # (A) 0.8 k/uL (0-1.0); Monocytes % (A) 8 %; Neutrophils # (A) 6.4 k/uL (1.3-7.7); Neutrophils % (A) 64 %; Platelet Count 291 k/uL (150-450); RBC 4.17 m/uL (4.30-5.90); RDW 13.6 % (11.5-15.5); WBC 10.1 k/uL (3.8-10.6)
[2020-08-14] MEDS: NICOTINE 14MG/24HR PATCH TRANSDERM SCH (08:23)
[2020-08-14] MEDS: PANTOPRAZOLE 40 MG TABLET PO SCH (08:24)
[2020-08-14] MEDS: cloNIDine HCL 0.1 MG TAB PO SCH ×3 (08:24→22:16)
[2020-08-14] MEDS: ENOXAPARIN 40 MG/0.4 ML SYRINGE SQ SCH (08:27)
[2020-08-14 09:31] LABS: African American GFR (CKD) 114.9 (60.0-200.0); Anion Gap 6.7 mmol/L (4.00-12.00); BUN/Creat Ratio 17.5 Ratio (12.00-20.00); Calcium 8.8 mg/dL (8.7-10.3); Carbon Dioxide 27.3 mmol/L (21.6-31.8); Non-African American GFR(CKD) 99.2 (60.0-200.0)
[2020-08-14] MEDS ORDERED: HYDROcodone/APAP 5-325MG 1 EACH TAB PO PRN (10:55)
--- NOTE | 2020-08-14 10:59 | P.PN ---
Subjective Progress Note Date: 08/14/20 Principal diagnosis: Status post intramedullary left intertrochanteric femur fracture Patient evaluated bedside today, he is resting comfortably. His physical therapy at this time. His pain is controlled. He denies any headaches, shortness of breath, nausea, fever or chills . Objective - Vital Signs Vital signs: Vital Signs Temp 97.9 F 08/14/20 07:54 Pulse 70 08/14/20 07:54 Resp 15 08/14/20 10:34 BP 122/75 08/14/20 07:54 Pulse Ox 98 08/14/20 07:54 Intake & Output 08/13/20 08/14/20 08/14/20 18:59 06:59 18:59 Intake Total 1571 100 Output Total 825 1450 225 Balance 746 -1350 -225 Weight 90.718 kg Intake: IV 1451 Intake, IV Titration 100 Amount ceFAZolin 2 gm In Sodium 100 Chloride 0.9% 50 ml @ 100 mls/hr IVPB Q8H [facility] Rx#: [id number] Oral 120 Output: Urine 800 1450 225 Estimated Blood Loss 25 Other: Voiding Method Urinal Urinal Urinal - Exam Left lower extremity: Incision is clean, dry, and intact. The katerine are in good condition. There is minimal soft tissue swelling and ecchymosis surrounding the medial and lateral aspects of the incision. Calf is soft, no tenderness with palpation. Plantar flexion, dorsiflexion, EHL, FHL are intact. Sensory exam to light touch throughout the extremity is intact, dorsal pedis pulses 2+. - Labs CBC & Chem 7: 08/14/20 06:22 08/14/20 06:22 Labs: Abnormal Lab Results - Last 24 Hours (Table) 08/13/20 08/14/20 08/14/20 Range/Units 07:11 06:22 06:22 RBC 4.17 L (4.30-5.90) m/uL Hct 38.9 L (39.0-53.0) % Sodium 132 L 134 L (135-145) mmol/L Glucose 120 H (70-110) mg/dL Assessment and Plan Assessment: Status post intramedullary nail left intertrochanteric femur fracture Plan: Pain control, continue utilizing oral medication DVT prophylaxis, continue subcu medication, plan for oral medication at discharge Patient needs to be up and out of bed today with physical therapy multiple times, out of bed for all meals Dressing was changed today bedside Medical recommendations Hopeful discharge home tomorrow Time with Patient: Less than 30
[2020-08-14] MEDS: THIAMINE 100 MG TAB PO SCH (11:34)
[2020-08-14] MEDS: FOLIC ACID 1 MG TAB PO SCH (11:34)
[2020-08-14] MEDS: MULTIVITAMINS, THERA 1 EACH TAB PO SCH (11:34)
--- NOTE | 2020-08-14 16:58 | P.PN ---
Subjective Progress Note Date: 08/14/20 This is a 55-year-old male who was recently admitted under orthopedic services Dr. Wiggins for recent fall and left hip pain and left femoral fracture and is being closely monitored. Patient underwent trochanteric nailing of the left hip and tolerated the procedure well. Patient currently denies any chest pain, shortness of breath, or palpitations. Patient is afebrile. No reports of nausea or vomiting and patient is tolerating diet. PT/OT are following and evaluating the patient. Patient states that his plan is to return home once discharged. Patient is asking if he can go home today. Home medications have been resumed. Sodium today has improved and is 134, potassium is 4.0, current creatinine is 0.8. Objective - Vital Signs Vital signs: Vital Signs Temp 97.1 F L 08/14/20 11:05 Pulse 88 08/14/20 11:05 Resp 16 08/14/20 11:05 BP 142/81 08/14/20 11:05 Pulse Ox 97 08/14/20 11:05 Intake & Output 08/13/20 08/14/20 08/14/20 18:59 06:59 18:59 Intake Total 1571 100 Output Total 825 1450 225 Balance 746 -1350 -225 Weight 90.718 kg Intake: IV 1451 Intake, IV Titration 100 Amount ceFAZolin 2 gm In Sodium 100 Chloride 0.9% 50 ml @ 100 mls/hr IVPB Q8H [facility] Rx#: [id number] Oral 120 Output: Urine 800 1450 225 Estimated Blood Loss 25 Other: Voiding Method Urinal Urinal Urinal - Exam Gen: This is a 55-year-old male sitting up in the chair, awake, alert and oriented 3, well-developed, well-nourished. Temp is 97.1F, pulse is 88, respirations are 16, blood pressure is 142/80, oxygen saturation is 97% on room air. HEENT: Head is atraumatic, normocephalic. Pupils equal, round. Sclerae is anicteric. NECK: Supple. No JVD. No lymphadenopathy. No thyromegaly. LUNGS: Breath sounds diminished bilaterally with no wheezing or rhonchi noted. No intercostal retractions. HEART: S1, S2 are muffled ABDOMEN: Soft. Bowel sounds are present. No masses. No tenderness. EXTREMITIES: No pedal edema. No calf tenderness. Status post surgery left hip dressing is dry and intact. NEUROLOGICAL: Patient is awake, alert and oriented x3. Cranial nerves 2 through 12 are grossly intact. - Labs CBC & Chem 7: 08/14/20 06:22 12 06:22 Labs: Abnormal Lab Results - Last 24 Hours (Table) 08/14/20 08/14/20 Range/Units 06:22 06:22 RBC 4.17 L (4.30-5.90) m/uL Hct 38.9 L (39.0-53.0) % Sodium 134 L (135-145) mmol/L Assessment and Plan Assessment: Fall and left hip intertrochanteric fracture status post trochanteric nailing of the left hip Hyponatremia, improved History of EtOH and minimal withdrawal symptoms hypertension Increased white blood count Minimally elevated bilirubin, improved History of gastroesophageal reflux disease History of gastrointestinal bleed History of seizure disorder History of chronic hip and back pain History back surgery History of anxiety/bipolar depression History of nicotine dependence History of EtOH history of THC Full code Recommendations and discussion: Comment to continue current medications, management, and symptomatic treatment. Monitor closely for any symptoms of withdrawal and Ativan and clonidine are ordered as needed. Patient to work with PT/OT therapy and continue DVT prophyl axis. Will continue to monitor closely with orthopedic surgery. Patient is asking when he is being discharged and was told by nursing staff with the possibility of tomorrow. Further recommendations to follow. Possible discharge in the morning.
[2020-08-15 02:45] VITALS: RESP 18; TEMP 98.2
[2020-08-15 06:06] LABS: Basophils # (A) 0.1 k/uL (0-0.2); Basophils % (A) 1 %; Eosinophils # (A) 0.3 k/uL (0-0.7); Eosinophils % (A) 3 %; HCT 37.4 % (39.0-53.0); HGB 12.4 gm/dL (13.0-17.5); Lymphocytes # (A) 2.6 k/uL (1.0-4.8); Lymphocytes % (A) 26 %; MCH 30.7 pg (25.0-35.0); MCV 93.1 fL (80.0-100.0); Mean Platelet Volume 7.4; Monocytes # (A) 0.8 k/uL (0-1.0); Monocytes % (A) 8 %; Neutrophils # (A) 6.2 k/uL (1.3-7.7); Neutrophils % (A) 61 %; Platelet Count 312 k/uL (150-450); RBC 4.02 m/uL (4.30-5.90); RDW 13.9 % (11.5-15.5); WBC 10.1 k/uL (3.8-10.6)
[2020-08-15] MEDS: HYDROcodone/APAP 5-325MG 1 EACH TAB PO PRN ×2 (06:16→10:09)
[2020-08-15 08:25] VITALS: BP 138/83; PULSE 66
[2020-08-15 09:28] LABS: African American GFR (CKD) 114.9 (60.0-200.0); Anion Gap 8.4 mmol/L (4.00-12.00); BUN/Creat Ratio 17.5 Ratio (12.00-20.00); Calcium 8.6 mg/dL (8.7-10.3); Carbon Dioxide 24.6 mmol/L (21.6-31.8); Non-African American GFR(CKD) 99.2 (60.0-200.0); Potassium 4.4 mmol/L (3.5-5.5)
[2020-08-15] MEDS: PANTOPRAZOLE 40 MG TABLET PO SCH (10:04)
[2020-08-15] MEDS: NICOTINE 14MG/24HR PATCH TRANSDERM SCH (10:04)
[2020-08-15] MEDS: ENOXAPARIN 40 MG/0.4 ML SYRINGE SQ SCH (10:04)
[2020-08-15] MEDS: cloNIDine HCL 0.1 MG TAB PO SCH (10:04)
--- NOTE | 2020-08-15 10:36 | P.PN ---
Subjective Progress Note Date: 08/15/20 Principal diagnosis: Status post intramedullary left intertrochanteric femur fracture Patient evaluated bedside today, he is resting comfortably. Pain well controlled. He did get up with physical therapy and is doing well. He denies any headaches, shortness of breath, nausea, fever or chills . Objective - Vital Signs Vital signs: Vital Signs Temp 98.2 F 08/15/20 08:00 Pulse 66 08/15/20 08:00 Resp 18 08/15/20 08:00 BP 138/83 08/15/20 08:00 Pulse Ox 96 08/15/20 08:00 Intake & Output 08/14/20 08/15/20 08/15/20 18:59 06:59 18:59 Intake Total 960 Output Total 525 2150 Balance -525 -1190 Intake: Intake, IV Titration 900 Amount Sodium Chloride 0.9% 1, 900 000 ml @ 80 drops/hr IV . Q24H [facility] Rx#:[id number] Oral 60 Output: Urine 525 2150 Other: Voiding Method Urinal Urinal Urinal - Exam Left lower extremity: Incision is clean, dry, and intact. The katerine are in good condition. There is minimal soft tissue swelling and ecchymosis surrounding the medial and later al aspects of the incision. Calf is soft, no tenderness with palpation. Plantar flexion, dorsiflexion, EHL, FHL are intact. Sensory exam to light touch throughout the extremity is intact, dorsal pedis pulses 2+. - Labs CBC & Chem 7: 08/15/20 05:28 08/15/20 05:28 Labs: Abnormal Lab Results - Last 24 Hours (Table) 08/15/20 08/15/20 Range/Units 05:28 05:28 RBC 4.02 L (4.30-5.90) m/uL Hgb 12.4 L (13.0-17.5) gm/dL Hct 37.4 L (39.0-53.0) % Calcium 8.6 L (8.7-10.3) mg/dL Assessment and Plan Assessment: Status post intramedullary nail left intertrochanteric femur fracture Plan: Pain control, continue utilizing oral medication DVT prophylaxis, aspirin 81 mg twice a day for 1 month Wound care instructions discussed Medical recommendations Discharge home today Time with Patient: Less than 30
--- NOTE | 2020-08-15 10:39 | P.DS ---
Providers Date of admission: 08/12/20 07:50 Expected date of discharge: 08/15/20 Attending physician: Chicho Wiggins Consults: 08/12/20 07:48 Consult Physician Urgent Consulting Provider: Celina Forbes Consult Reason/Comments: Surgical clearance, medical management Do you want consulting provider notified?: Yes Primary care physician: Stated None Hospital Course: Date of admission: 08/12/2020 Date of discharge: 08/15/2020 Admission diagnosis: Minimally displaced left intertrochanteric femur fracture Discharge diagnosis: Status post intramedullary nail left intertrochanteric femur fracture Attending physician: Dr. Wigigns Surgical procedures: Intramedullary nail left intertrochanteric femur Brief history: Patient is a 55-year-old male who presented to [facility] on 08/12/2020 after falling in his home injuring his left hip. It was determined he had an intertrochanteric femur fracture on the left-hand side. He was admitted under orthopedic care, proper consults were placed for medical management. Patient was scheduled for surgery on 08/13/2020. Hospital course: Details of patient's surgery can be found in operative report. Patient tolerated the procedure well and was subsequently transported to orthopedic floor. Patient's orthopeidc and medical care was provided daily. Patient had daily laboratory tests performed for evaluation of overall blood count. Patient had daily physical therapy to include strengthening range of motion as well as education with walker ambulation. Patient was treated with Lovenox for their postoperative DVT prophylaxis during their inpatient stay. Patient was noted to have a relatively uneventful postoperative course. Patient reported satisfactory pain control with oral pain medications by postoperative day 0. Patient showed satisfactory progress with physical therapy. Patient moved steadily through the program and had no difficulty meeting the goals by postoperative day 2. Given patient's otherwise satisfactory course and having met physical therapy goals, plan is to discharge patient home on postoperative day 2. Discharge condition/disposition: Patient will be discharged home in stable condition. Discharge medications: Instructions are given on resumption of patient's normal daily medications per primary care recommendation, in addition patient will be prescribed Dix 5 mg/325 mg, Colace 100 mg, aspirin 81 mg. Discharge instructions: 1. Wound care and infection precautions, keep incision dry and covered while showering, no lotions, creams, moisturizers. No soaking, tubs, pools, hottubs. Do not scrub over the incision. 2. Weight-bear as tolerated with walker / cane until follow-up. 3. Ice and elevate when necessary. Do not exceed 20 minutes per hour with ice pack. 4. Utilize compression sleeve until seen at first follow up appointment. 5. Visiting nursing care. 6. Home physical therapy 7. Pain meds and anticoagulants per prescription. 8. Pain medication has potential to cause constipation. Increase oral fluid and fiber intake. Contact primary care provider if you have not had a bowel movement within 48 hours after discharge 9. No anti-inflammatory medication until discussed at first post operative visit, this including Motrin, Aleve, Mobic, Diclofenac 10. Follow up in office at 2 weeks postop with Juanjose Jhaveri PA-C 11. Follow up with your primary care doctor 7-10 days after discharge. 12. Contact [facility] with any questions, . Procedures: Intramedullary nail left intertrochanteric femur fracture Patient Condition at Discharge: Fair Plan - Discharge Summary Discharge Rx Participant: No New Discharge Prescriptions: New Aspirin [Adult Low Dose Aspirin EC] 81 mg PO BID #60 tablet. Docusate [Colace] 100 mg PO DAILY #30 capsule Hydrocodone/Acetaminophen [Dix 5-325] 1 each PO Q6HR PRN #28 tab PRN Reason: Pain No Action Naproxen Sodium [Aleve] 220 mg PO Q12HR PRN PRN Reason: Pain Acetaminophen [Tylenol] 1,000 mg PO Q8H PRN PRN Reason: Pain Discharge Medication List Acetaminophen [Tylenol] 1,000 mg PO Q8H PRN 08/12/20 [History] Naproxen Sodium [Aleve] 220 mg PO Q12HR PRN 08/12/20 [History] Aspirin [Adult Low Dose Aspirin EC] 81 mg PO BID #60 tablet. 08/15/20 [Rx] Docusate [Colace] 100 mg PO DAILY #30 capsule 08/15/20 [Rx] Hydrocodone/Acetaminophen [Dix 5-325] 1 each PO Q6HR PRN #28 tab 08/15/20 [Rx] Follow up Appointment(s)/Referral(s): Christiano Jhaveri PAC [PHYSICIAN [employer]] - 08/29/20 2:00 pm None,Stated [Primary Care Provider] - 1-2 days Activity/Diet/Wound Care/Special Instructions: [facility] can be reached at [phone]. Your first appointment has been scheduled for TuesdayAugust 18 at 0900. Please call them if any changed needed. Information needed is prescription from the physician, insurance cards, and photo ID. Orthopedic Discharge Instructions: 1. Wound care and infection precautions, keep incision dry and covered while showering, no lotions, creams, moisturizers. No soaking, pools, hot tubs. Do not scrub over incision. 2. Weight-bear as tolerated with walker / cane until follow-up. 3. Ice and elevate when necessary. Do not exceed 20 minutes per hour with ice pack. 4. Utilize compression sleeve until seen at first follow up appointment. 5. Pain meds and anticoagulants per prescription. 6. Pain medication has potential to cause constipation. Increase oral fluid and fiber intake. Contact primary care provider if you have not had a bowel movement within 48 hours after discharge. 7. No anti-inflammatory medication until discussed at first post operative visit, this including Motrin, Aleve, Mobic, Diclofenac 8. Follow up in office at 2 weeks postop with Juanjose Jhaveri PA-C 9. Follow up with your primary care doctor 7-10 days after discharge. 10. Contact [facility] with any questions, . Discharge Disposition: HOME WITH HOME HEALTH SERVICES
[2020-08-15] MEDS: THIAMINE 100 MG TAB PO SCH (12:06)
[2020-08-15] MEDS: FOLIC ACID 1 MG TAB PO SCH (12:06)
[2020-08-15] MEDS: MULTIVITAMINS, THERA 1 EACH TAB PO SCH (12:06)
--- NOTE | 2020-08-15 14:58 | P.PN ---
Subjective Progress Note Date: 08/15/20 This is a 55-year-old male who was recently admitted under orthopedic services Dr. Wiggins for recent fall and left hip pain and left femoral fracture and is being closely monitored. Patient underwent trochanteric nailing of the left hip and tolerated the procedure well. Patient currently denies any chest pain, shortness of breath, or palpitations. Patient is afebrile. No reports of nausea or vomiting and patient is tolerating diet. PT/OT are following and evaluating the patient. Patient states that his plan is to return home once discharged. Patient is asking if he can go home today. Home medications have been resumed. Sodium today has improved and is 134, potassium is 4.0, current creatinine is 0.8. 08/15/2020 Patient is seen in follow-up status post left hip trochanteric nailing and is being closely monitored. Patient is currently sitting up in the chair stating he has worked with physical therapy and is walking with a walker. Patient states he does have a walker at home. Patient will be continuing with physical therapy in the outpatient setting upon discharge. Blood pressure is well controlled on Catapres and will continue. Prescription was provided and patient instructed to continue to monitor blood pressure and keep a diary for primary care follow-up. Odium is 135 today, potassium is 4.4 and current creatinine is 0.8. Patient denies any chest pain, shortness of breath, or palpitations. Patient is afebrile. No reports of nausea vomiting and patient has been tolerating diet. Patient states he is going home today. Objective - Vital Signs Vital signs: Vital Signs Temp 98.2 F 08/15/20 08:00 Pulse 66 08/15/20 08:00 Resp 18 08/15/20 08:00 BP 138/83 08/15/20 08:00 Pulse Ox 96 08/15/20 08:00 Intake & Output 08/14/20 08/15/20 08/15/20 18:59 06:59 18:59 Intake Total 960 Output Total 525 2150 Balance -525 -1190 Intake: Intake, IV Titration 900 Amount Sodium Chloride 0.9% 1, 900 000 ml @ 80 drops/hr IV . [facility]H [facility] Rx#:[id number] Oral 60 Output: Urine 525 2150 Other: Voiding Method Urinal Urinal - Exam Gen: This is a 55-year-old male sitting up in the chair, awake, alert and oriented 3, well-developed, well-nourished. Temp is 98.2F, pulse is 66, respirations are 18, blood pressure is 138/83, oxygen saturation is 96% on room air. HEENT: Head is atraumatic, normocephalic. Pupils equal, round. Sclerae is anicteric. NECK: Supple. No JVD. No lymphadenopathy. No thyromegaly. LUNGS: Breath sounds diminished bilaterally with no wheezing or rhonchi noted. No intercostal retractions. HEART: S1, S2 are muffled ABDOMEN: Soft. Bowel sounds are present. No masses. No tenderness. EXTREMITIES: No pedal edema. No calf tenderness. Status post surgery left hip dressing is dry and intact. NEUROLOGICAL: Patient is awake, alert and oriented x3. Cranial nerves 2 through 12 are grossly intact. - Labs CBC & Chem 7: 08/15/20 05:28 08/15/20 05:28 Labs: Abnormal Lab Results - Last 24 Hours (Table) 08/14/20 08/15/20 Range/Units 06:22 05:28 RBC 4.02 L (4.30-5.90) m/uL Hgb 12.4 L (13.0-17.5) gm/dL Hct 37.4 L (39.0-53.0) % Sodium 134 L (135-145) mmol/L Assessment and Plan Assessment: Fall and left hip intertrochanteric fracture status post trochanteric nailing of the left hip Hyponatremia, improved History of EtOH and minimal withdrawal symptoms hypertension Increased white blood count Minimally elevated bilirubin, improved History of gastroesophageal reflux disease History of gastrointestinal bleed History of seizure disorder History of chronic hip and back pain History back surgery History of anxiety/bipolar depression History of nicotine dependence History of EtOH history of THC Full code Recommendations and discussion: Comment to continue current medications, management, and symptomatic treatment. Monitor closely for any symptoms of withdrawal. Patient worked with PT/OT therapy and continue DVT prophylaxis. Will continue to monitor closely with orthopedic surgery. Patient is being discharged today. Further recommendations to follow.
== END 2020-08-15 13:12 | disposition home or self-care (01) | DRG 481 ==
LOC: EC 06:02 → 4SSUR 07:50 → 5NMEDONC 19:00
PROVIDERS: ADMIT Orthopaedic Surgery; ATTEND Orthopaedic Surgery
PROC: 0QS704Z Reposition Left Upper Femur with Internal Fixation Device, Open Approach (ICD-10-PCS; principal; 2020-08-13 09:35)
DX: S72.142A Displaced intertrochanteric fracture of left femur, initial encounter for closed fracture (principal); E87.1 Hypo-osmolality and hyponatremia; Z20.828 Contact with and (suspected) exposure to other viral communicable diseases; I10 Essential (primary) hypertension; F41.9 Anxiety disorder, unspecified; K21.9 Gastro-esophageal reflux disease without esophagitis; M54.6 Pain in thoracic spine; M25.559 Pain in unspecified hip; F17.210 Nicotine dependence, cigarettes, uncomplicated; Z71.6 Tobacco abuse counseling; Z85.79 Personal history of other malignant neoplasms of lymphoid, hematopoietic and related tissues; Z87.19 Personal history of other diseases of the digestive system; Z87.39 Personal history of other diseases of the musculoskeletal system and connective tissue; Z87.81 Personal history of (healed) traumatic fracture; Z86.69 Personal history of other diseases of the nervous system and sense organs; Z86.59 Personal history of other mental and behavioral disorders; Z98.890 Other specified postprocedural states; W01.0XXA Fall on same level from slipping, tripping and stumbling without subsequent striking against object, initial encounter; Y92.003 Bedroom of unspecified non-institutional (private) residence as the place of occurrence of the external cause; Z83.79 Family history of other diseases of the digestive system
CPT/HCPCS: 71045; 72170; 73502; 80048; 80053; 81001; 85025; 85610; 85730; 86850; 86900; 86901; 87635; 93005; 96374; 96375; 99284

== ENCOUNTER → 2022-12-08 | Outpatient (CLI) | payer OTHER ==
--- NOTE | 2022-12-09 06:41 | MR ---
EXAMINATION TYPE: MR lumbar spine wo/w con DATE OF EXAM: 12/08/2022 COMPARISON: MRI lumbar spine June 23, 2016 HISTORY: Low back pain, urinary incontinence. TECHNIQUE: Multiplanar, multisequence images of the lumbar spine is performed without and with IV contrast, util izing 7.5 mL intravenous Gadavist FINDINGS: Persistent underlying scoliosis. Sagittal images of the lumbar spine show vertebral body he ights and alignment to remain satisfactory. Multilevel disc desiccation redemonstrated. Mild to moder ate disc space narrowing L2-L3 level redemonstrated. Moderate disc space narrowing L3-L4 level redemo nstrated. Severe disc space narrowing with mild/moderate anterior spurring L4-L5 level redemonstrated . At heterogeneous Modic type I endplate changes posterior L4-L5 level is redemonstrated. The conus m edullaris remains normal in position and signal ending at T12-L1 level. No abnormal postcontrast enha ncement is seen. Axial images at T12-L1 level show mild broad disc bulge minimally effacing anterior thecal sac. Paten t bilateral neural foramina. Axial images at L1-L2 level show mild broad-based posterior disc protrusion minimally effacing anteri or thecal sac. Patent bilateral neural foramina. Axial images at L2-L3 level showed mild to moderate broad disc bulge mildly effacing the anterior the lara sac along with mild facet arthropathy bilaterally slightly effacing the right posterior lateral t hecal sac. Patent bilateral neural foramina. No significant change from prior. Axial images L3-L4 level shows moderate broad-based disc bulge effacing the anterior thecal sac and m ild facet arthropathy bilaterally. There is mild bilateral neural foraminal narrowing seen. No signif icant change from prior. Axial images at L4-L5 level show mild broad disc bulge with left lateral disc protrusion component an d mild to moderate facet arthropathy bilaterally with some effacement of the left posterior lateral t hecal sac and some effacement of the anterior thecal sac. There is moderate to severe inferior left-s ided neural foraminal narrowing redemonstrated with likely some encroachment in the extraforaminal le ft L4 nerve. Right-sided neural foramina is patent. No significant change from prior. Axial images at L5-S1 level mild facet arthropathy. Spinal canal is preserved. No suspicious retroperitoneal findings. IMPRESSION: Scoliosis with multilevel degenerative change as detailed above are redemonstrated.
== END | disposition home or self-care (01) ==
LOC: RADMRIMAIN 18:47
PROVIDERS: ATTEND Urology
DX: M47.816 Spondylosis without myelopathy or radiculopathy, lumbar region (principal); N39.42 Incontinence without sensory awareness
CPT/HCPCS: 72158; A9585

== ENCOUNTER → 2023-09-06 | Outpatient (CLI) | payer OTHER ==
--- NOTE | 2023-09-06 13:15 | CTL ---
EXAMINATION TYPE: CT Low Dose Lung DATE OF EXAM ORDERED: 09/06/2023 HISTORY:. Lung cancer screening CT DLP: 75.[address] CTDI: 2.3 mGy Automated exposure control for dose reduction was used. COMPARISON: 05/02/2016 TECHNIQUE: Low dose computed tomography scan was performed through the chest at 1 mm thick sections a nd reconstructed images in multiple planes at 1 mm and [address] DIAGNOSTIC QUALITY: Satisfactory FINDINGS: There is a stable 6 mm nodule left upper lobe with mild degree of central calcification. No new or asher spicious lung mass or nodule is seen. There is no abnormal airspace/consolidative density or abnormal interstitial density. There is no pleural effusion or pneumothorax. There is dense calcification of the left lung base pleu ra which is stable. Limited scanning through the upper abdomen reveals no gross abnormality. No focal osseous lesions are seen. There are postsurgical changes of mid to lower thoracic spinal fusion. IMPRESSION: 1. Lung RADS category 2 benign findings , continue routine screening at yearly intervals. 2. No acute cardiopulmonary disease.
== END | disposition home or self-care (01) ==
LOC: RADCTMAIN 10:59
PROVIDERS: ATTEND Family Medicine
DX: Z12.2 Encounter for screening for malignant neoplasm of respiratory organs (principal); F17.210 Nicotine dependence, cigarettes, uncomplicated
CPT/HCPCS: 71271